=== PATIENT | female | born 1940 | race Caucasian/White ===

== ENCOUNTER 2025-10-13 22:41 | Inpatient (IN) ==
--- NOTE | 2025-10-13 22:59 | Emergency Department Note ---
Impression & Plan Acute hypoxic respiratory failure, Acute respiratory distress, Atrial fibrillation with RVR, Pneumonia ED Provider Note NAME: MIGDALIA AMBROCIO AGE: 85 SEX: F : 1940 ARRIVES VIA: Ambulance INFORMANT: Patient ED PROVIDER(S): Peter Apodaca DO CHIEF COMPLAINT: Shortness of breath, cough and congestion HPI: Patient is an 85-year-old female who presents ER for shortness of breath associate with cough and congestion. She has a history of COPD. She notes symptoms have been present for the past 2 to 3 days and have been getting worse. She has been having off-and-on diarrhea per report from EMS. She was prescribed antibiotics and steroids but never started them. She denies any belly pain. No dysuria, urgency or frequency. No other exacerbating or remitting factors. She is found to be 70% on room air and placed on nonrebreather and transported in. ADDITIONAL HISTORY OBTAINED: Per HPI Chronic Medical/Social Conditions Affecting Care: Per HPI PAST MEDICAL HISTORY:See Below PAST SURGICAL HISTORY:See Below FAMILY HISTORY:See Below SOCIAL HISTORY:See Below HOME MEDICATIONS:See Below ALLERGIES:See Below VITALS:See Below PHYSICAL EXAMINATION: GENERAL: Sitting up in bed, alert, ill-appearing, disheveled, on a nonrebreather EYE EXAM: normal conjunctiva. PERRL and EOM's grossly intact. OROPHARYNX: no exudate, no erythema, lips, buccal mucosa, and tongue normal and mucous membranes are moist NECK: supple, no nuchal rigidity, no adenopathy, non-tender LUNGS: Rhonchi bilaterally. Normal chest wall mechanics HEART: no murmurs, S1 normal and S2 normal ABDOMEN: abdomen soft, non-tender, normo-active bowel sounds, no masses, no rebound or guarding. UPPER EXTREMITIES: upper extremities are grossly normal. LOWER EXTREMITIES: No pitting edema. NEURO EXAM: Normal sensorium, cranial nerves II-XII grossly intact, normal speech, no gross weakness of arms, no gross weakness of legs. MEDICAL DECISION MAKING: Patient is an 85-year-old female who presents ER for above-stated complaint. IV was established and blood work was obtained. Labs show mild leukocytosis of 12,000. No significant anemia. INR unremarkable. VBG with a pH of 7.32. BMP with a hyponatremia 133. Lactate 2.9. Mag was unremarkable. Troponin mildly elevated in the 50s. Pro-Se at 1.5. UA was contaminated with multiple epithelial cells. Patient was flu positive. She was covered with IV Rocephin and IV azithromycin. She was given 2 L of IV fluids due to the persistent diarrhea and initial hypotension. Case was discussed with hospitalist for further evaluation management treatment. She was titrated off of the nonrebreather on the 2 L nasal cannula. After 2 L of IV fluids he was given 5 mg IV Lopressor to slow the rate. Did not want to completely slow her down as I do favor portion this is infectious and dehydration and will continue to repeat with IV fluids. Consults/Care Managements Discussions: Per [facility] Triage Nursing notes reviewed. Limited review of prior medical records performed Vital Signs: reviewed and remarkable for hypoxic, tachycardic Differential diagnosis: Differential diagnoses includes but is not limited to pneumonia, bronchitis, COPD/Asthma exacerbation, pneumothorax, pulmonary embolism, congestive heart failure, acute coronary syndrome ER treatment provided: See below Diagnostics interpreted by me include EKG and cardiac monitoring as listed below: -Cardiac Monitoring: An order was placed for continuous cardiac monitoring. The monitor shows a rate of 120 with A-fib rhythm. -ECG: A-fib RVR rate of [address] depressions in the inferior leads and lateral leads QTc 438 -Laboratory studies:Interpreted by me as stated above in MDM and shown below. Imaging studies: Xrays: As interpreted by me: Portable AP upright 1 view of the chest shows infiltrates CTs show: none Procedures:none Critical Care: I have personally spent 55 minutes of critical care time in the direct management of this patient. This includes bedside care, interpretation of diagnostic studies, and testing, discussion with consultants, patient, and family members, and other required patient management activities. This 55 minutes is in excess of all separately billable procedures. Past Med/Surg History Problem List (Updated 10/14/25 @ 00:43 by Trey Gates MD) Acute respiratory distress Social History Feels Safe at Home: Yes Allergies Allergies Allergy/AdvReac Type Severity Reaction Status Date / Time aspirin Allergy Severe ANGIOEDEMA Verified 10/13/25 23:48 NSAIDS (Non-Steroidal Allergy Severe ANGIOEDEMA Verified 10/13/25 23:48 Anti-Inflamma clotrimazole Allergy Intermediate Itching Verified 10/13/25 23:48 erythromycin base Allergy Intermediate Hives Verified 10/13/25 23:48 Home Meds Home Medications Medication Instructions Recorded Confirmed albuterol sulfate 90 mcg/actuation 2 puff inhalation QID PRN 10/13/25 10/13/25 aerosol inhaler Shortness Of Breath Or Wheezing amlodipine 10 mg tablet 10 mg PO HS 10/13/25 10/13/25 amoxicillin 875 mg-potassium 1 tab PO BID 10/13/25 10/13/25 clavulanate 125 mg tablet atorvastatin 10 mg tablet 10 mg PO 3XWK 10/13/25 10/13/25 budesonide 160 mcg-glycopyr 9 2 inh inhalation BID 10/13/25 10/13/25 mcg-formot 4.8 mcg/actuation HFA inhaler (Breztri Aerosphere) clotrimazole-betamethasone 1 1 applic topical BID 10/13/25 10/13/25 %-0.05 % topical cream conjugated estrogens 0.625 mg/gram 1,000 mg vaginal HS 10/13/25 10/13/25 vaginal cream (Premarin) montelukast 10 mg tablet 10 mg PO HS 10/13/25 10/13/25 nebivolol 5 mg tablet 5 mg PO QAM 10/13/25 10/13/25 omeprazole 20 mg capsule,delayed 20 mg PO DAILYBB 10/13/25 10/13/25 release prednisone 20 mg tablet 20 mg PO DIRECTED 10/13/25 10/13/25 Results & Data (ED) Vital Signs Vital Signs - 24 hr 10/13/25 22:43 10/13/25 22:46 10/13/25 22:48 Temperature 36.4 C L Temperature Source Axillary Pulse Rate 155 H 146 H Pulse Rate [Apical] Respiratory Rate 38 H Respiratory Pattern Blood Pressure 110/70 Blood Pressure [Right Arm] Blood Pressure Mean 83 Blood Pressure Mean [Right Arm] Pulse Oximetry 74 L 86 L Oxygen Delivery Method Room Air Room Air Nasal Cannula Oxygen Flow Rate 0 Sepsis Recent Fever Within 48 Hours Yes Sepsis New/Unexplained Change in Mental Status No Sepsis Action Taken by Nursing Physician Notified Oxygen Flow Rate - Titration 4 Pulse Oximetry Post Tiitration 95 10/13/25 22:48 10/13/25 22:48 10/13/25 22:48 Temperature Temperature Source Pulse Rate Pulse Rate [Apical] Respiratory Rate Respiratory Pattern Tachypnea Blood Pressure Blood Pressure [Right Arm] Blood Pressure Mean Blood Pressure Mean [Right Arm] Pulse Oximetry Oxygen Delivery Method Nasal Cannula Nasal Cannula Oxygen Flow Rate Sepsis Recent Fever Within 48 Hours Sepsis New/Unexplained Change in Mental Status Sepsis Action Taken by Nursing Oxygen Flow Rate - Titration Pulse Oximetry Post Tiitration 10/13/25 23:31 10/13/25 23:48 10/14/25 00:00 Temperature Temperature Source Pulse Rate 136 H Pulse Rate [Apical] 131 H 106 H Respiratory Rate 22 26 H Respiratory Pattern Blood Pressure 134/107 H Blood Pressure [Right Arm] 122/74 138/101 H Blood Pressure Mean Blood Pressure Mean [Right Arm] 90 113 Pulse Oximetry 90 93 Oxygen Delivery Method Nasal Cannula Nasal Cannula Oxygen Flow Rate 4 4 Sepsis Recent Fever Within 48 Hours Sepsis New/Unexplained Change in Mental Status Sepsis Action Taken by Nursing Oxygen Flow Rate - Titration Pulse Oximetry Post Tiitration 10/14/25 00:00 10/14/25 00:22 Temperature Temperature Source Pulse Rate 106 H Pulse Rate [Apical] 124 H Respiratory Rate 24 Respiratory Pattern Blood Pressure Blood Pressure [Right Arm] 128/97 Blood Pressure Mean Blood Pressure Mean [Right Arm] 107 Pulse Oximetry 94 Oxygen Delivery Method Nasal Cannula Oxygen Flow Rate 4 Sepsis Recent Fever Within 48 Hours Sepsis New/Unexplained Change in Mental Status Sepsis Action Taken by Nursing Oxygen Flow Rate - Titration Pulse Oximetry Post Tiitration Laboratory Data 10/13/25 22:56 10/13/25 22:56 Lab Results 10/13/25 10/13/25 10/13/25 Range/Units 22:56 22:58 23:03 WBC 12.15 H (4.8-10.8) K/ul RBC 4.66 (4.20-5.40) M/uL Hgb 13.6 (12.0-16.0) g/dL POC Hgb 15.6 (12.0-16.0) g/dl Hct 40.1 (37.0-47.0) % POC Hct 46 (37-47) % MCV 86.1 (80.0-100.0) fL MCH 29.2 (25.0-34.0) pg MCHC 33.9 (32.0-36.0) g/dL RDW Std Deviation 43.1 (36.4-46.3) fL RDW Coeff of Abraham 13.9 (11.5-14.5) % Plt Count 432 H (130-400) K/uL MPV 10.2 (9.4-12.4) fL Absolute Nucleated RBC 0.02 (0.00-0.12) K/uL Nucleated RBC % (auto) 0.2 % Neutrophils % (Manual) 76 % Lymphocytes % (Manual) 19 % Monocytes % (Manual) 3 % Metamyelocytes % (Man) 1 % Plasma Cell % (Manual) 1 % Neutrophils # (Manual) 9.23 H (1.40-6.50) K/uL Total Absolute Neuts 9.23 H (1.4-6.5) K/uL Lymphocytes # (Manual) 2.31 (1.2-3.4) K/uL Total Abs Lymphocytes 2.43 (1.2-3.4) K/uL Monocytes # (Manual) 0.36 (0.11-0.59) K/uL Metamyelocytes # (Man) 0.12 H (0-0) K/uL Plasma Cell # (Manual) 0.12 H (0-0) K/uL Polychromasia 1+ Echinocytes 2+ PT 11.4 (9.0-12.0) Seconds INR 1.1 (0.9-1.1) APTT 24 (21-31) Seconds PTT Ratio 0.9 VBG pH 7.32 L (7.36-7.41) VBG pCO2 42 (38-50) mmHg VBG pO2 24 mmHg VBG HCO3 22 mmol/L VBG O2 Saturation < 60.0 % VBG Base Excess -4.3 mEq/L POC Sodium 134 L (135-144) mmol/L Sodium 133 L (136-145) mmol/L POC Potassium 3.4 (3.3-5.0) mmol/L Potassium 3.0 L (3.5-5.1) mmol/L POC Chloride 98 L (101-112) mmol/L Chloride 94 L (98-107) mmol/L Carbon Dioxide 20 L (21-32) mmol/L POC Total CO2 21 L (24-31) mmol/L Anion Gap 19 H (3-11) POC Anion Gap 20.0 (16-25) mmol/L POC BUN 53 H (7-18) mg/dl BUN 53 H (6-23) mg/dl Creatinine 1.26 H (0.6-1.2) mg/dl POC Creatinine 1.2 (0.6-1.3) mg/dl Est Cr Clr Drug Dosing 30.1 ml/min eGFR 42.10 BUN/Creatinine Ratio 42.1 H (10-20) Glucose 147 H (70-99(Fasting)) mg/dl POC Glucose (other) 143 H (70-99) mg/dl Lactate 2.9 H* (0.4-2.0) mmol/L Calcium 9.4 (8.6-10.3) mg/dl POC Ioniz Calcium Birgit 1.03 L (1.12-1.32) mmol/l Magnesium 2.0 (1.7-2.4) mg/dl Total Bilirubin 0.7 (0.2-1.0) mg/dl Direct Bilirubin 0.3 H (0-0.2) mg/dl AST 59 H (13-39) U/L ALT 26 (7-52) U/L Alkaline Phosphatase 124 H (34-104) U/L Troponin I High Sens 59.4 H* (0-14) pg/ml Total Protein 8.3 (6.0-8.3) gm/dl Albumin 3.8 (3.4-5.0) gm/dl Procalcitonin 1.52 H (0-0.5) ng/ml Urine Color Urine Appearance (Clear) Urine pH (4.5-7.5) Ur Specific [place] (1.000-1.030) Urine Protein (Negative) Urine Glucose (UA) (Negative) Urine Ketones (Negative) Urine Blood (Negative) Urine Nitrite (Negative) Urine Bilirubin (Negative) Urine Urobilinogen (Negative) Ur Leukocyte Esterase (Negative) Urine WBC (Auto) (0-5) /hpf Urine RBC (Auto) (0-2) /hpf U Hyaline Cast (Auto) (0-2) /lpf U Epithel Cells (Auto) (0-2) /hpf Urine Bacteria (Auto) (None Seen) Urine Mucus (None Prsent) Urine Comment SARS-CoV-2 (PCR) NEGATIVE (Negative) Influenza Type A (PCR) Positive A (Neg) Influenza Type B (PCR) Negative (Neg) RSV (RT-PCR) Negative (Neg) 10/13/25 Range/Units 23:44 WBC (4.8-10.8) K/ul RBC (4.20-5.40) M/uL Hgb (12.0-16.0) g/dL POC Hgb (12.0-16.0) g/dl Hct (37.0-47.0) % POC Hct (37-47) % MCV (80.0-100.0) fL MCH (25.0-34.0) pg MCHC (32.0-36.0) g/dL RDW Std Deviation (36.4-46.3) fL RDW Coeff of Abraham (11.5-14.5) % Plt Count (130-400) K/uL MPV (9.4-12.4) fL Absolute Nucleated RBC (0.00-0.12) K/uL Nucleated RBC % (auto) % Neutrophils % (Manual) % Lymphocytes % (Manual) % Monocytes % (Manual) % Metamyelocytes % (Man) % Plasma Cell % (Manual) % Neutrophils # (Manual) (1.40-6.50) K/uL Total Absolute Neuts (1.4-6.5) K/uL Lymphocytes # (Manual) (1.2-3.4) K/uL Total Abs Lymphocytes (1.2-3.4) K/uL Monocytes # (Manual) (0.11-0.59) K/uL Metamyelocytes # (Man) (0-0) K/uL Plasma Cell # (Manual) (0-0) K/uL Polychromasia Echinocytes PT (9.0-12.0) Seconds INR (0.9-1.1) APTT (21-31) Seconds PTT Ratio VBG pH (7.36-7.41) VBG pCO2 (38-50) mmHg VBG pO2 mmHg VBG HCO3 mmol/L VBG O2 Saturation % VBG Base Excess mEq/L POC Sodium (135-144) mmol/L Sodium (136-145) mmol/L POC Potassium (3.3-5.0) mmol/L Potassium (3.5-5.1) mmol/L POC Chloride (101-112) mmol/L Chloride (98-107) mmol/L Carbon Dioxide (21-32) mmol/L POC Total CO2 (24-31) mmol/L Anion Gap (3-11) POC Anion Gap (16-25) mmol/L POC BUN (7-18) mg/dl BUN (6-23) mg/dl Creatinine (0.6-1.2) mg/dl POC Creatinine (0.6-1.3) mg/dl Est Cr Clr Drug Dosing ml/min eGFR BUN/Creatinine Ratio (10-20) Glucose (70-99(Fasting)) mg/dl POC Glucose (other) (70-99) mg/dl Lactate (0.4-2.0) mmol/L Calcium (8.6-10.3) mg/dl POC Ioniz Calcium Birgit (1.12-1.32) mmol/l Magnesium (1.7-2.4) mg/dl Total Bilirubin (0.2-1.0) mg/dl Direct Bilirubin (0-0.2) mg/dl AST (13-39) U/L ALT (7-52) U/L Alkaline Phosphatase (34-104) U/L Troponin I High Sens (0-14) pg/ml Total Protein (6.0-8.3) gm/dl Albumin (3.4-5.0) gm/dl Procalcitonin (0-0.5) ng/ml Urine Color Dark Yellow Urine Appearance Turbid A (Clear) Urine pH 5.5 (4.5-7.5) Ur Specific [place] 1.024 (1.000-1.030) Urine Protein 2+ H (Negative) Urine Glucose (UA) Negative (Negative) Urine Ketones 1+ H (Negative) Urine Blood 2+ H (Negative) Urine Nitrite Negative (Negative) Urine Bilirubin 2+ H (Negative) Urine Urobilinogen Negative (Negative) Ur Leukocyte Esterase Trace H (Negative) Urine WBC (Auto) 6-10 H (0-5) /hpf Urine RBC (Auto) 11-20 H (0-2) /hpf U Hyaline Cast (Auto) >20 H (0-2) /lpf U Epithel Cells (Auto) >20 H (0-2) /hpf Urine Bacteria (Auto) 3+ H (None Seen) Urine Mucus Present A (None Prsent) Urine Comment SARS-CoV-2 (PCR) (Negative) Influenza Type A (PCR) (Neg) Influenza Type B (PCR) (Neg) RSV (RT-PCR) (Neg) Administered Medications Sodium Chloride (Nss) 1,000 mls @ 999 mls/hr IV .[id number] SHELLEY Stop: 10/14/25 01:00 Last Admin: 10/14/25 00:29 Dose: 999 mls/hr Documented By: Infusion: 10/14/25 00:01 Dose: Infused Documented By: Admin: 10/13/25 23:00 Dose: 999 mls/hr Documented By: AN Azithromycin (Zithromax) 500 mg in 255 mls @ 127.5 mls/hr IV NOW ONE Stop: 10/14/25 01:20 Last Admin: 10/13/25 23:37 Dose: 127.5 mls/hr Documented By: AN Discontinued Medications Albuterol (Albut/Ipratrop 3mg/0.5mg Neb 3 Ml Vial) 3 ml NEB NOW STA; Protocol Stop: 10/13/25 22:50 Last Admin: 10/13/25 23:00 Dose: 3 ml Documented By: AN Ceftriaxone Sodium (Rocephin) 2,000 mg in 50 mls @ 100 mls/hr IV NOW STA Stop: 10/13/25 23:19 Last Infusion: 10/13/25 23:36 Dose: Infused Documented By: Admin: 10/13/25 23:00 Dose: 100 mls/hr Documented By: AN Methylprednisolone (Methylprednisolone 125 Mg/2 Ml Vial) 60 mg IV NOW STA Stop: 10/13/25 22:50 Last Admin: 10/13/25 23:00 Dose: 60 mg Documented By: AN Metoprolol Tartrate (Metoprolol Tartrate 1 Mg/Ml Vial) 5 mg IV NOW STA Stop: 10/13/25 23:36 Last Admin: 10/13/25 23:48 Dose: 5 mg Documented By: AN Miscellaneous (Rapid Sequence Induction Bag) Confirm Administered Dose 1 each N/A .STK-MED ONE Stop: 10/13/25 22:33 Last Admin: 10/13/25 23:11 Dose: Not Given Documented By: AN Imaging Data Radiologist's Impression: Chest X-Ray 10/13/25 22:48 Exam(s): XR CXR 1 VIEW EXAM: XR Chest, 1 View CLINICAL HISTORY: Reason for exam: Sepsis. TECHNIQUE: Frontal view of the chest. COMPARISON: No relevant prior studies available. FINDINGS: Lungs: There are bilateral patchy opacities.. Pleural space: No pleural effusion is seen. No pneumothorax. Heart: The heart is normal in size.. Mediastinum: Unremarkable. . Bones/joints: Grossly unremarkable.. IMPRESSION: Patchy bilateral opacities may represent infiltrates. Electronically signed by: Cricket Bobo MD 10/13/25 23:09 PM Discharge Plan Visit Data Chief Complaint: Respiratory Distress Stated Complaint: RESPIRATORY DISTRESS, HYPOXIA ED Provider: Peter Apodaca Discharge Problem: Acute hypoxic respiratory failure, Acute respiratory distress, Atrial fibrillation with RVR, Pneumonia Condition: Critical Discharge Problem: Pneumonia Qualifiers: Pneumonia type: due to unspecified organism Laterality: unspecified laterality Lung location: unspecified part of lung Qualified Code(s): J18.9 - Pneumonia, unspecified organism
[2025-10-13] MEDS: ALBUT/IPRATROP 3MG/0.5MG NEB 3 ML VIAL NEB STA (23:00)
[2025-10-13] MEDS: cefTRIAXone SODIUM 2,000 MG/50 ML BAG IV STA (23:00)
[2025-10-13] MEDS: SODIUM CHLORIDE 0.9% 1,000 ML IV SCH (23:00)
--- NOTE | 2025-10-13 23:10 | XRay Report ---
Exam(s): XR CXR 1 VIEW EXAM: XR Chest, 1 View CLINICAL HISTORY: Reason for exam: Sepsis. TECHNIQUE: Frontal view of the chest. COMPARISON: No relevant prior studies available. FINDINGS: Lungs: There are bilateral patchy opacities.. Pleural space: No pleural effusion is seen. No pneumothorax. Heart: The heart is normal in size.. Mediastinum: Unremarkable. . Bones/joints: Grossly unremarkable.. IMPRESSION: Patchy bilateral opacities may represent infiltrates. Electronically signed by: Cricket Bobo MD 10/13/25 23:09 PM
[2025-10-13] MEDS: RAPID SEQUENCE INDUCTION BAG ONE (23:11)
[2025-10-13 23:12] LABS: Base Excess VBG -4.3 mEq/L; HCO3 VBG 22 mmol/L; Oxygen Saturation VBG < 60.0 %; PCO2 VBG 42 mmHg (38-50); PO2 VBG 24 mmHg; pH VBG 7.32 (7.36-7.41)
[2025-10-13 23:16] LABS: Hematocrit (blood only) 40.1 % (37.0-47.0); Hemoglobin 13.6 g/dL (12.0-16.0); Mean Corpuscular Hemoglobin 29.2 pg (25.0-34.0); Mean Corpuscular Volume 86.1 fL (80.0-100.0); Platelet Count 432 K/uL (130-400); RDW Standard Deviation 43.1 fL (36.4-46.3); Red Blood Count 4.66 M/uL (4.20-5.40); White Blood Count 12.15 K/ul (4.8-10.8)
[2025-10-13 23:33] LABS: Alanine Aminotransferase 26.0 U/L (7-52); Albumin Level 3.8 gm/dl (3.4-5.0); Alkaline Phosphatase 124.0 U/L (34-104); Anion Gap 19.0 (3-11); Bilirubin,Total 0.7 mg/dl (0.2-1.0); Blood Urea Nitrogen 53.0 mg/dl (6-23); Calcium 9.4 mg/dl (8.6-10.3); Carbon Dioxide 20.0 mmol/L (21-32); Chloride 94.0 mmol/L (98-107); Creatinine Clr Calc Pharmacy 30.1 ml/min; Glucose 147.0 mg/dl (70-99(Fasting)); Magnesium 2.0 mg/dl (1.7-2.4); Potassium 3.0 mmol/L (3.5-5.1); Sodium 133.0 mmol/L (136-145); Total Protein 8.3 gm/dl (6.0-8.3)
[2025-10-13] MEDS: AZITHROMYCIN 500 MG/255 ML BAG IV ONE (23:37)
[2025-10-13 23:43] LABS: INR 1.1 (0.9-1.1); Partial Thromboplastin Time 24 Seconds (21-31); Prothrombin Time 11.4 Seconds (9.0-12.0)
[2025-10-13] MEDS: METOPROLOL TARTRATE 1 MG/ML VIAL IV STA (23:48)
[2025-10-14 00:05] LABS: ALC (manual) 2.43 K/uL (1.2-3.4); ANC (manual) 9.23 K/uL (1.4-6.5); Polychromasia 1+
[2025-10-14 00:06] LABS: Influenza A virus by PCR Positive (Neg); Influenza B virus by PCR Negative (Neg); SARS CoV2 RNA(COVID-19) Ceph NEGATIVE (Negative)
[2025-10-14 00:09] LABS: Appearance Urine Turbid (Clear); Bacteria Urine Automated 3+ (None Seen); Cast Urine Automated >20 /lpf (0-2); Epithelial Cell Urine Auto >20 /hpf (0-2); Glucose Urine UA Negative (Negative)
--- NOTE | 2025-10-14 00:49 | History & Physical Report ---
Date of Service October 14, 2025 Assessment & Plan (1) Acute respiratory distress: Plan: 85-year-old female with past medical history significant for hypertension, COPD, hyperlipidemia, GERD, history of angioneurotic edema, who lives at home alone was brought in because of acute respite distress. Daughter is in the room. Patient states since she has been sick. First couple of days she had low-grade fevers. Having cough. Progressively getting short of breath. Last 3 days shortness of breath got worse. Her PCP prescribed prednisone and antibiotics last Wednesday but not taken yet. Having lot of nausea. Poor appetite. With coughing she has some chest discomfort. Currently no chest pain. Has some headaches. No runny nose or sore throat. No earache. No abdominal pain. Was also having diarrhea. Micturating okay. In the ER patient was having rapid A-fib. Per the EMS oxygen saturation was found to be 70% and was placed on nonrebreather and transferred to ER. Currently is saturating okay on 4 L. Acute respiratory distress Bilateral pneumonia Influenza A positive Empiric Rocephin and azithromycin given in the ER which will be continued Will also give Tamiflu Droplet precautions Lactic is 2.9. Getting fluids. repeat lactic acid 1.6 elevated d dimer. Will follow ct chest pe study Will Monitor the response Possible COPD exacerbation From above Nebs [id number] and as needed Continue home inhalers IV Solu-Medrol 40 mg tid Will monitor Rapid A-fib New onset Received IV Lopressor in the ER Will continue with IV Lopressor as needed and IV heparin Will follow serial enzymes and echo Elevated troponin Initial troponin 59 Mostly demand ischemia Will follow serial enzymes and echo Cardiology consulted Acute UTI On Rocephin Will follow cultures Diarrhea Will follow stool studies JANIA Present with creatinine 1.2 Baseline creatinine 0.9 in 2023 Avoid nephrotoxic agents Will follow labs Hypokalemia Will replace Hypertension On Nebivolol and amlodipine Will monitor GERD Omeprazole Hyperlipidemia On statin DVT prophylaxis IV heparin Disposition Telemetry Full code History of Present Illness Chief Complaint: Respiratory distress Primary Care Provider: Edith Forte MD 85-year-old female with past medical history significant for hypertension, COPD, hyperlipidemia, GERD, history of angioneurotic edema, who lives at home alone was brought in because of acute respite distress. Daughter is in the room. Patient states since she has been sick. First couple of days she had low-grade fevers. Having cough. Progressively getting short of breath. Last 3 days shortness of breath got worse. Her PCP prescribed prednisone and antibiotics last Wednesday but not taken yet. Having lot of nausea. Poor appetite. With coughing she has some chest discomfort. Currently no chest pain. Has some headaches. No runny nose or sore throat. No earache. No abdominal pain. Was also having diarrhea. Micturating okay. In the ER patient was having rapid A-fib. Per the EMS oxygen saturation was found to be 70% and was placed on nonrebreather and transferred to ER. Currently is saturating okay on 4 L. Past medical history. As mentioned above. Past surgical history. Hysterectomy. Cholecystectomy. Appendectomy. Tonsillectomy. Social history. Says quit smoking about 30 years ago. Prior to that smoked 1 pack a day for 35 years. Alcohol rarely. No drug use. Family history. Sister had breast cancer. Paternal aunt had breast cancer. Mother had diabetes. Father had heart disorder. Allergies Allergy/AdvReac Type Severity Reaction Status Date / Time aspirin Allergy Severe ANGIOEDEMA Verified 10/13/25 23:48 NSAIDS (Non-Steroidal Allergy Severe ANGIOEDEMA Verified 10/13/25 23:48 Anti-Inflamma clotrimazole Allergy Intermediate Itching Verified 10/13/25 23:48 erythromycin base Allergy Intermediate Hives Verified 10/13/25 23:48 Home Medications Medication Instructions Recorded Confirmed Type albuterol sulfate 90 mcg/actuation 2 puff inhalation QID PRN 10/13/25 10/13/25 History aerosol inhaler Shortness Of Breath Or Wheezing amlodipine 10 mg tablet 10 mg PO HS 10/13/25 10/13/25 History amoxicillin 875 mg-potassium 1 tab PO BID 10/13/25 10/13/25 History clavulanate 125 mg tablet atorvastatin 10 mg tablet 10 mg PO 3XWK 10/13/25 10/13/25 History budesonide 160 mcg-glycopyr 9 2 inh inhalation BID 10/13/25 10/13/25 History mcg-formot 4.8 mcg/actuation HFA inhaler (Breztri Aerosphere) clotrimazole-betamethasone 1 1 applic topical BID 10/13/25 10/13/25 History %-0.05 % topical cream conjugated estrogens 0.625 mg/gram 1,000 mg vaginal HS 10/13/25 10/13/25 History vaginal cream (Premarin) montelukast 10 mg tablet 10 mg PO HS 10/13/25 10/13/25 History nebivolol 5 mg tablet 5 mg PO QAM 10/13/25 10/13/25 History omeprazole 20 mg capsule,delayed 20 mg PO DAILYBB 10/13/25 10/13/25 History release prednisone 20 mg tablet 20 mg PO DIRECTED 10/13/25 10/13/25 History Past Med/Surg History Problem List (Updated 10/14/25 @ 00:43 by Trey Gates MD) Acute respiratory distress Social History Smoking Status: Former smoker Smoking End Date: 30 years ago; Hx Alcohol Use: No Hx Substance Use: No Preferred Language: Czech Communication Ability: Effective Technical Services Specialist Required: No Beliefs That Will Affect Care: None Current Living Situation: Alone Current Living Situation Comment: lives at home alone Other Information That Helps Us Care for You: No Feels Safe at Home: Yes Safety Concerns: Feels Safe At This Time Assistive Devices: Hearing Aid - Bilateral Review of Systems Review of Systems: All systems reviewed & are unremarkable except as noted in HPI & below Physical Exam Physical Exam: General- Not in distress Head- atraumatic Eyes- PERRL. ENT- oropharynx dry Neck- supple, no JVD. Lungs- clear to auscultation mild bibasilar crackles and rhonchi Heart- irregular rhythm; tachycardia, no murmur, no gallop. Abdomen- normal bowel sounds, soft, nontender, no distension. Extremities- no pretibial edema, no erythema seen Neuro- alert, oriented PERRL, no facial palsy; no dysarthria; moves extremities Results & Data Results & Data Vital Signs (Past 12 Hours) Vital Signs Temp Pulse Pulse Resp BP BP Pulse Ox 10/14/25 00:22 124 H 24 128/97 94 10/14/25 00:00 106 H 10/14/25 00:00 106 H 26 H 138/101 H 93 10/13/25 23:48 136 H 134/107 H 10/13/25 23:31 131 H 22 122/74 90 10/13/25 22:48 10/13/25 22:48 10/13/25 22:48 86 L 12/06/25 22:46 146 H 10/13/25 22:43 36.4 C L 155 H 38 H 110/70 74 L O2 Del Method O2 Flow Rate 10/14/25 00:22 Nasal Cannula 4 10/14/25 00:00 10/14/25 00:00 Nasal Cannula 4 10/13/25 23:48 10/13/25 23:31 Nasal Cannula 4 10/13/25 22:48 Nasal Cannula 10/13/25 22:48 Nasal Cannula 10/13/25 22:48 Room Air, Nasal Cannula 0 10/13/25 22:46 10/13/25 22:43 Room Air Diagnostic Findings Laboratory Results WBC 12.15 K/ul (4.8-10.8) H 10/13/25 22:56 RBC 4.66 M/uL (4.20-5.40) 10/13/25 22:56 Hgb 13.6 g/dL (12.0-16.0) 10/13/25 22:56 POC Hgb 15.6 g/dl (12.0-16.0) 10/13/25 23:03 Hct 40.1 % (37.0-47.0) 10/13/25 22:56 POC Hct 46 % (37-47) 10/13/25 23:03 MCV 86.1 fL (80.0-100.0) 10/13/25 22:56 MCH 29.2 pg (25.0-34.0) 10/13/25 22:56 MCHC 33.9 g/dL (32.0-36.0) 10/13/25 22:56 RDW Std Deviation 43.1 fL (36.4-46.3) 10/13/25 22:56 RDW Coeff of Abraham 13.9 % (11.5-14.5) 10/13/25 22:56 Plt Count 432 K/uL (130-400) H 10/13/25 22:56 MPV 10.2 fL (9.4-12.4) 10/13/25 22:56 Absolute Nucleated RBC 0.02 K/uL (0.00-0.12) 10/13/25 22:56 Nucleated RBC % (auto) 0.2 % 10/13/25 22:56 Neutrophils % (Manual) 76 % 10/13/25 22:56 Lymphocytes % (Manual) 19 % 10/13/25 22:56 Monocytes % (Manual) 3 % 10/13/25 22:56 Metamyelocytes % (Man) 1 % 10/13/25 22:56 Plasma Cell % (Manual) 1 % 10/13/25 22:56 Neutrophils # (Manual) 9.23 K/uL (1.40-6.50) H 10/13/25 22:56 Total Absolute Neuts 9.23 K/uL (1.4-6.5) H 10/13/25 22:56 Lymphocytes # (Manual) 2.31 K/uL (1.2-3.4) 10/13/25 22:56 Total Abs Lymphocytes 2.43 K/uL (1.2-3.4) 10/13/25 22:56 Monocytes # (Manual) 0.36 K/uL (0.11-0.59) 10/13/25 22:56 Metamyelocytes # (Man) 0.12 K/uL (0-0) H 10/13/25 22:56 Plasma Cell # (Manual) 0.12 K/uL (0-0) H 10/13/25 22:56 Polychromasia 1+ 10/13/25 22:56 Echinocytes 2+ 10/13/25 22:56 PT 11.4 Seconds (9.0-12.0) 10/13/25 22:56 INR 1.1 (0.9-1.1) 10/13/25 22:56 APTT 24 Seconds (21-31) 10/13/25 22:56 PTT Ratio 0.9 10/13/25 22:56 VBG pH 7.32 (7.36-7.41) L 10/13/25 22:56 VBG pCO2 42 mmHg (38-50) 10/13/25 22:56 VBG pO2 24 mmHg 10/13/25 22:56 VBG HCO3 22 mmol/L 10/13/25 22:56 VBG O2 Saturation < 60.0 % 10/13/25 22:56 VBG Base Excess -4.3 mEq/L 10/13/25 22:56 POC Sodium 134 mmol/L (135-144) L 10/13/25 23:03 Sodium 133 mmol/L (136-145) L 12/06/25 22:56 POC Potassium 3.4 mmol/L (3.3-5.0) 10/13/25 23:03 Potassium 3.0 mmol/L (3.5-5.1) L 10/13/25 22:56 POC Chloride 98 mmol/L (101-112) L 10/13/25 23:03 Chloride 94 mmol/L (98-107) L 10/13/25 22:56 Carbon Dioxide 20 mmol/L (21-32) L 10/13/25 22:56 POC Total CO2 21 mmol/L (24-31) L 10/13/25 23:03 Anion Gap 19 (3-11) H 10/13/25 22:56 POC Anion Gap 20.0 mmol/L (16-25) 10/13/25 23:03 POC BUN 53 mg/dl (7-18) H 10/13/25 23:03 BUN 53 mg/dl (6-23) H 10/13/25 22:56 Creatinine 1.26 mg/dl (0.6-1.2) H 10/13/25 22:56 POC Creatinine 1.2 mg/dl (0.6-1.3) 10/13/25 23:03 Est Cr Clr Drug Dosing 30.1 ml/min 10/13/25 22:56 eGFR 42.10 10/13/25 22:56 BUN/Creatinine Ratio 42.1 (10-20) H 10/13/25 22:56 Glucose 147 mg/dl (70-99(Fasting)) H 10/13/25 22:56 POC Glucose (other) 143 mg/dl (70-99) H 10/13/25 23:03 Lactate 2.9 mmol/L (0.4-2.0) H* 10/13/25 22:56 Calcium 9.4 mg/dl (8.6-10.3) 10/13/25 22:56 POC Ioniz Calcium Birgit 1.03 mmol/l (1.12-1.32) L 10/13/25 23:03 Magnesium 2.0 mg/dl (1.7-2.4) 10/13/25 22:56 Total Bilirubin 0.7 mg/dl (0.2-1.0) 10/13/25 22:56 Direct Bilirubin 0.3 mg/dl (0-0.2) H 10/13/25 22:56 AST 59 U/L (13-39) H 10/13/25 22:56 ALT 26 U/L (7-52) 10/13/25 22:56 Alkaline Phosphatase 124 U/L (34-104) H 10/13/25 22:56 Troponin I High Sens 59.4 pg/ml (0-14) H* 10/13/25 22:56 Total Protein 8.3 gm/dl (6.0-8.3) 10/13/25 22:56 Albumin 3.8 gm/dl (3.4-5.0) 10/13/25 22:56 Procalcitonin 1.52 ng/ml (0-0.5) H 10/13/25 22:56 Urine Color Dark Yellow 10/13/25 23:44 Urine Appearance Turbid (Clear) A 10/13/25 23:44 Urine pH 5.5 (4.5-7.5) 10/13/25 23:44 Ur Specific [place] 1.024 (1.000-1.030) 10/13/25 23:44 Urine Protein 2+ (Negative) H 10/13/25 23:44 Urine Glucose (UA) Negative (Negative) 10/13/25 23:44 Urine Ketones 1+ (Negative) H 10/13/25 23:44 Urine Blood 2+ (Negative) H 10/13/25 23:44 Urine Nitrite Negative (Negative) 10/13/25 23:44 Urine Bilirubin 2+ (Negative) H 10/13/25 23:44 Urine Urobilinogen Negative (Negative) 10/13/25 23:44 Ur Leukocyte Esterase Trace (Negative) H 10/13/25 23:44 Urine WBC (Auto) 6-10 /hpf (0-5) H 10/13/25 23:44 Urine RBC (Auto) 11-20 /hpf (0-2) H 10/13/25 23:44 U Hyaline Cast (Auto) >20 /lpf (0-2) H 10/13/25 23:44 U Epithel Cells (Auto) >20 /hpf (0-2) H 10/13/25 23:44 Urine Bacteria (Auto) 3+ (None Seen) H 10/13/25 23:44 Urine Mucus Present (None Prsent) A 10/13/25 23:44 Urine Comment 10/13/25 23:44 SARS-CoV-2 (PCR) NEGATIVE (Negative) 10/13/25 22:58 Influenza Type A (PCR) Positive (Neg) A 10/13/25 22:58 Influenza Type B (PCR) Negative (Neg) 10/13/25 22:58 RSV (RT-PCR) Negative (Neg) 10/13/25 22:58 Impressions Chest X-Ray 10/13/25 22:48 Exam(s): XR CXR 1 VIEW EXAM: XR Chest, 1 View CLINICAL HISTORY: Reason for exam: Sepsis. TECHNIQUE: Frontal view of the chest. COMPARISON: No relevant prior studies available. FINDINGS: Lungs: There are bilateral patchy opacities.. Pleural space: No pleural effusion is seen. No pneumothorax. Heart: The heart is normal in size.. Mediastinum: Unremarkable. . Bones/joints: Grossly unremarkable.. IMPRESSION: Patchy bilateral opacities may represent infiltrates. Electronically signed by: Cricket Bobo MD 10/13/25 23:09 PM ECG Additional Comments: ECG. A-fib with rapid ventricular response with PVCs or aberrantly conducted complexes at rate of 143. ST and T wave abnormality inferior lateral leads. QTc 438 Code Status & VTE Plan VTE Prophylaxis Plan VTE Prophylaxis will be ordered: Yes
[2025-10-14] MEDS ORDERED: NITROGLYCERIN SL 0.4 MG/TAB TAB SL PRN (00:53)
[2025-10-14] MEDS ORDERED: ALBUTEROL HFA 8 GM INHALER INH PRN (00:53)
[2025-10-14] MEDS ORDERED: LEVALBUTEROL 1.25 MG/3 ML NEB NEB PRN (00:53)
[2025-10-14] MEDS ORDERED: POLYETHYLENE (MIRALAX) 17 GM PACK PO PRN (00:53)
[2025-10-14] MEDS: Heparin IV Adult Wt-Based Standard *NO* INITIAL Bolus Protocol IV STA (02:07)
[2025-10-14] MEDS: POTASSIUM CHLORIDE / WTR 10 MEQ/100 ML PLCT IV SCH (02:14)
[2025-10-14] MEDS: SODIUM CHLORIDE 0.9% 1,000 ML IV SCH (02:14)
[2025-10-14] MEDS: HEPARIN 25000 UNIT/500 ML D5W 25,000 UNITS/500 ML BAG IV SCH (02:15)
[2025-10-14] MEDS: POTASSIUM CHLORIDE 20 MEQ/15 ML UDC PO STA (03:12)
[2025-10-14] MEDS: METOPROLOL TARTRATE 1 MG/ML VIAL IV PRN (03:59)
[2025-10-14] MEDS: LEVALBUTEROL 1.25 MG/3 ML NEB NEB SCH (05:13)
[2025-10-14] MEDS: METOPROLOL TARTRATE 1 MG/ML VIAL IV STA (06:05)
[2025-10-14 06:28] LABS: Hematocrit (blood only) 30.4 % (37.0-47.0); Hemoglobin 10.4 g/dL (12.0-16.0); Mean Corpuscular Hemoglobin 29.5 pg (25.0-34.0); Mean Corpuscular Volume 86.1 fL (80.0-100.0); Platelet Count 345 K/uL (130-400); RDW Standard Deviation 43.4 fL (36.4-46.3); Red Blood Count 3.53 M/uL (4.20-5.40); White Blood Count 10.38 K/ul (4.8-10.8)
[2025-10-14 06:33] LABS: Base Excess VBG -5.6 mEq/L; HCO3 VBG 20 mmol/L; Oxygen Saturation VBG < 60.0 %; PCO2 VBG 39 mmHg (38-50); PO2 VBG 32 mmHg; pH VBG 7.32 (7.36-7.41)
[2025-10-14 06:37] LABS: Immature Granulocytes # (auto) 0.24 K/uL (0.01-0.20); Immature Granulocytes % (auto) 2.3 %; Polychromasia 1+
[2025-10-14 06:38] LABS: Anion Gap 12.0 (3-11); Blood Urea Nitrogen 46.0 mg/dl (6-23); Calcium 7.8 mg/dl (8.6-10.3); Carbon Dioxide 19.0 mmol/L (21-32); Chloride 101.0 mmol/L (98-107); Creatinine Clr Calc Pharmacy 41.9 ml/min; Glucose 178.0 mg/dl (70-99(Fasting)); Magnesium 1.8 mg/dl (1.7-2.4); Potassium 3.9 mmol/L (3.5-5.1); Sodium 132.0 mmol/L (136-145)
[2025-10-14] MEDS: CALCIUM GLUCONATE 1,000 MG/60 ML BAG IV SCH (07:19)
[2025-10-14] MEDS: OSELTAMIVIR PHOSPHATE 75 MG CAP PO STA (07:35)
[2025-10-14] MEDS: BUDESONIDE 0.5 MG/2 ML VIAL (PULMICORT) NEB SCH (08:07)
[2025-10-14] MEDS: FORMOTEROL 20 MCG/2 ML VIAL NEB SCH (08:07)
[2025-10-14] MEDS: UMECLIDINIUM/VILANTEROL 62.5/25MCG 7 PUFFS/INHALER INH SCH (08:20)
[2025-10-14] MEDS: FLUTICASONE FUROATE 200MCG 14 PUFFS/INHALER INH SCH (08:21)
[2025-10-14] MEDS: METOPROLOL TARTRATE 25 MG TAB PO SCH ×2 (08:22→16:52)
--- NOTE | 2025-10-14 08:27 | Cardiology Consultation ---
Date of Consultation October 14, 2025 Assessment & Plan (1) Acute respiratory distress: (2) Multifocal pneumonia: (3) Influenza A: (4) Elevated d-dimer: (5) Atrial fibrillation with RVR: Plan Assessment: 85 year old female with known HTN, HLD and COPD presents with 1.5 weeks of URI symptoms, low grade fevers, and a persistent cough. Prescribed antibiotics and steroids OP by PCP did not start. Found to be in A-fib with RVR upon arrival to the ER, abnormal urine suspicious for UTI, elevated lactate and procalcitonin--blood cultures pending, and CT imaging suggestive of multi-focal pneumonia. Cardiology consuulted for further evaluation and recommendations. Plan: 1. Acute Respiratory distress 2. Multifocal pneumonia 3. Influenza A -patient with several days of + URI symptoms and known COPD. -X-ray suggestive of infectious process--CTA chest negative for PE, but is suggestive of multifocal pneumonia -Patient placed on nebulizer treatments, IV Azithromycin, and IV Methylprednisolone -Started on Tamiflu -Of note, abnormal urine, culture pending, patient is also receiving IV Rocephin -Currently on nasal cannula 4LPM -Continued management of acute infectious process by primary team -Recommend close monitoring of fluid status in the setting of A-fib with patient receiving increased amounts of IV fluids with antibiotics. 4. Elevated D-dimer -CTA chest negative for PE -Venous duplex of lower extremities negative for DVT 5. Atrial fibrillation with RVR -No reported prior history of A-fib or other arrhythmia -Event likely precipitated in the setting of an acute infectious process with + flu, poor oral intake, Likely pneumonia and UTI -Rates 110-120bpm on telemetry--Continue Metoprolol tartrate 25mg PO BID, will trend heart rates and titrate dose as appropriate. Heart rates will likely trend down with response to IV antibiotics and anti-viral agent. -patient does not show evidence of hypervolemia on exam--will need to monitor fluid levels closely -Obtain echocardiogram to assess overall structure and function. -Continue Heparin gtt at this time. [id number] score: 4. Case has been discussed with Dr. Hyman. Further recommendations regarding plan of care as per his assessment. I spent a total of 50 minutes on the date of service in preparation, delivery, documentation of the care provided to the patient excluding any time spent in the performance of separately billed services. [facility] Supervising Physician Co-Signing Physician Notes I have personally performed a history and physical examination on the patient. I have reviewed the advance practitioner's documentation, and I agree with, and take responsibility for the plan of care. 85-year-old female admitted secondary to acute hypoxic respiratory failure with evidence of influenza A and multifocal pneumonia. ECG demonstrating atrial fibrillation with rapid ventricular response likely precipitated by infectious process and poor p.o. intake. Mildly elevated troponin secondary to demand ischemia. Echocardiogram demonstrates preserved LV systolic function without regional wall motion abnormality. Recommend continue IV anticoagulation with heparin. Titrate metoprolol to 25 mg 3 times daily. Continue telemetry monitoring. Supplement electrolytes as indicated. Silvestre Hyman DO, [facility] I spent a total of 40 minutes on the date of service in preparation, delivery, and documentation of the care provided to this patient, excluding any time spent in the performance of separately billed services. History of Present Illness Reason for Consultation: Rapid A-fib Requesting Physician: Sari hospitalist Attending Physician: Alistair Palomino MD History of Present Illness HPI: Patient is a 85 year old female with PMHx significant for HTN, HLD, COPD, GERD and remote history of angioneurotic edema (allergies to ASA and NSAIDS) that presented to the ER with acute respiratory distress. Patient has been seen for approx 1.5 weeks with URI symptoms, low grade fevers and a cough. She reports that her symptoms had become significantly worse over the past 3 days. Her PCP prescribed her both an antibiotic and prednisone 2 days ago, but patient did not take them. She endorses poor appetite and poor PO intake with ongoing nausea and diarrhea. Review of systems limited as patient is having a significant coughing fit. She is awake, alert and oriented and verbalizes understanding to discussion. Endorses her chest hurts from coughing. She is getting nebulizer treatments and is able to leave the department for CT chest and venous duplex due to elevated DDS. Patient has tested positive for influenza A, Chest xray shows patchy bilateral opacities suggestive of possible pneumonia EKG on admission shows atrial fibrillation with RVR --Received IV lopressor in the ER D-dimer 2110 Urine Positive--culture pending Elevated Lactate and Procalcitonin--blood cultures pending Troponin 59.4/37.5/33.9 Review of telemetry shows A-fib rates 110-120bpm Allergies Allergy/AdvReac Type Severity Reaction Status Date / Time aspirin Allergy Severe ANGIOEDEMA Verified 10/13/25 23:48 NSAIDS (Non-Steroidal Allergy Severe ANGIOEDEMA Verified 10/13/25 23:48 Anti-Inflamma clotrimazole Allergy Intermediate Itching Verified 10/13/25 23:48 erythromycin base Allergy Intermediate Hives Verified 10/13/25 23:48 Home Medications Medication Instructions Recorded Confirmed Type albuterol sulfate 90 mcg/actuation 2 puff inhalation QID PRN 10/13/25 10/13/25 History aerosol inhaler Shortness Of Breath Or Wheezing amlodipine 10 mg tablet 10 mg PO HS 10/13/25 10/13/25 History amoxicillin 875 mg-potassium 1 tab PO BID 10/13/25 10/13/25 History clavulanate 125 mg tablet atorvastatin 10 mg tablet 10 mg PO 3XWK 10/13/25 10/13/25 History budesonide 160 mcg-glycopyr 9 2 inh inhalation BID 10/13/25 10/13/25 History mcg-formot 4.8 mcg/actuation HFA inhaler (Breztri Aerosphere) clotrimazole-betamethasone 1 1 applic topical BID 10/13/25 10/13/25 History %-0.05 % topical cream conjugated estrogens 0.625 mg/gram 1,000 mg vaginal HS 10/13/25 10/13/25 History vaginal cream (Premarin) montelukast 10 mg tablet 10 mg PO HS 10/13/25 10/13/25 History nebivolol 5 mg tablet 5 mg PO QAM 10/13/25 10/13/25 History omeprazole 20 mg capsule,delayed 20 mg PO DAILYBB 10/13/25 10/13/25 History release prednisone 20 mg tablet 20 mg PO DIRECTED 10/13/25 10/13/25 History Patient History Social History Smoking Status: Former smoker Smoking End Date: 30 years ago; Hx Alcohol Use: No Hx Substance Use: No Preferred Language: Chinese Communication Ability: Effective Senior Capital Markets Specialist Required: No Beliefs That Will Affect Care: None Current Living Situation: Alone Current Living Situation Comment: lives at home alone Other Information That Helps Us Care for You: No Feels Safe at Home: Yes Safety Concerns: Feels Safe At This Time Assistive Devices: None Review of Systems Review of Systems: All systems reviewed & are unremarkable except as noted in HPI & below limited verbal discussion due to excessive coughing Physical Exam Constitutional: well developed, well nourished and + ill appearing; no acute distress Neck: normal visual inspection and trachea midline Respiratory: + cough and + tachypneic; no respiratory distress Auscultation: + rhonchi and + wheezes exp wheezes and rhonchi throughout Cardiovascular: Rate/Rhythm: + tachycardic and + irregularly irregular Heart Sounds: normal S1 and normal S2 Vessels: dorsalis pedis pulses present; no JVD Extremities: no edema Skin: no rashes, warm and dry Psychiatric: Orientation: alert and oriented x 3 Results & Data Vital Signs (Past 12 Hours) Vital Signs Temp Pulse Pulse Resp BP BP Pulse Ox 10/14/25 08:09 86 24 93 10/14/25 07:57 108 H 10/14/25 07:12 36.4 C L 119 H 23 125/74 93 10/14/25 06:33 103 H 10/14/25 06:05 125 H 130/73 10/14/25 05:56 126 H 130/73 10/14/25 05:13 110 H 20 94 10/14/25 04:26 119 H 101/61 10/14/25 04:22 102/61 10/14/25 03:59 136 H 129/81 10/14/25 03:53 36.5 C 136 H 19 129/81 95 10/14/25 03:00 10/14/25 02:50 124 H 10/14/25 02:30 36.4 C L 116 H 20 115/45 L 93 10/14/25 01:30 114 H 28 H 126/90 93 10/14/25 01:30 10/14/25 00:22 124 H 24 128/97 94 10/14/25 00:00 106 H 10/14/25 00:00 106 H 26 H 138/101 H 93 10/13/25 23:48 136 H 134/107 H 10/13/25 23:31 131 H 22 122/74 90 10/13/25 22:48 10/13/25 22:48 10/13/25 22:48 86 L 10/13/25 22:46 146 H 10/13/25 22:43 36.4 C L 155 H 38 H 110/70 74 L Pulse Ox O2 Del Method O2 Del Method O2 Flow Rate O2 Flow Rate 10/14/25 08:09 Nasal Cannula 3 10/14/25 07:57 10/14/25 07:12 Nasal Cannula 3 10/14/25 06:33 10/14/25 06:05 10/14/25 05:56 10/14/25 05:13 Nasal Cannula 3 10/14/25 04:26 10/14/25 04:22 10/14/25 03:59 10/14/25 03:53 Nasal Cannula 4 10/14/25 03:00 Nasal Cannula 4 10/14/25 02:50 10/14/25 02:30 Nasal Cannula 4 10/14/25 01:30 Nasal Cannula 4 10/14/25 01:30 93 Nasal Cannula 4 10/14/25 00:22 Nasal Cannula 4 10/14/25 00:00 10/14/25 00:00 Nasal Cannula 4 10/13/25 23:48 10/13/25 23:31 Nasal Cannula 4 10/13/25 22:48 Nasal Cannula 10/13/25 22:48 Nasal Cannula 10/13/25 22:48 Room Air, Nasal Cannula 0 10/13/25 22:46 10/13/25 22:43 Room Air Laboratory Results Cardiac Enzymes 10/13/25 10/14/25 10/14/25 Range/Units 22:56 01:19 05:35 AST 59 H (13-39) U/L Troponin I High Sens 59.4 H* 37.5 H D 33.9 H (0-14) pg/ml Coagulation 10/13/25 Range/Units 22:56 PT 11.4 (9.0-12.0) Seconds APTT 24 (21-31) Seconds CBC 10/13/25 10/14/25 Range/Units 22:56 05:35 WBC 12.15 H 10.38 (4.8-10.8) K/ul RBC 4.66 3.53 L (4.20-5.40) M/uL Hgb 13.6 10.4 L D (12.0-16.0) g/dL Hct 40.1 30.4 L (37.0-47.0) % Plt Count 432 H 345 (130-400) K/uL Neut # (Auto) 9.13 H (1.40-6.50) K/uL Lymph # (Auto) 0.83 L (1.20-3.40) K/uL Villalba # (Auto) 0.16 (0.11-0.59) K/uL Eos # (Auto) 0.00 (0.00-0.50) K/uL Baso # (Auto) 0.02 (0.00-0.20) K/uL Comprehensive Metabolic Panel 10/13/25 10/14/25 Range/Units 22:56 05:35 Sodium 133 L 132 L (136-145) mmol/L Potassium 3.0 L 3.9 D (3.5-5.1) mmol/L Chloride 94 L 101 (98-107) mmol/L Carbon Dioxide 20 L 19 L (21-32) mmol/L BUN 53 H 46 H (6-23) mg/dl Creatinine 1.26 H 0.90 D (0.6-1.2) mg/dl Glucose 147 H 178 H (70-99(Fasting)) mg/dl Calcium 9.4 7.8 L (8.6-10.3) mg/dl Direct Bilirubin 0.3 H (0-0.2) mg/dl AST 59 H (13-39) U/L ALT 26 (7-52) U/L Alkaline Phosphatase 124 H (34-104) U/L Total Protein 8.3 (6.0-8.3) gm/dl Albumin 3.8 (3.4-5.0) gm/dl Intake and Output 10/13/25 10/14/25 10/14/25 22:59 06:59 14:59 Intake Total 0 / 2488.333 2488.333 / 2488.333 221.85 / 221.85 Output Total 150 / 150 Balance 0 / 2338.333 2338.333 / 2338.333 221.85 / 221.85 Intake: IV 2488.333 / 2488.333 221.85 / 221.85 Azithromycin 500 mg In 255 ml @ 255 / 255 127.5 mls/hr IV NOW ONE Rx#: [id number] Calcium Gluconate 1,000 mg In 120 / 120 60 ml @ 240 mls/hr IV Q15M [facility] Rx#:[id number] Heparin 93693 Unit/500 ml D5w 101.85 / 101.85 25,000 units In 500 ml @ 1,050 UNITS/HR 21 mls/hr IV .[id number] [facility] Rx#:[id number] Potassium Chloride / Wtr 10 meq 183.333 / 183.333 In 100 ml @ 100 mls/hr IV Q1H [facility] Rx#:[id number] Sodium Chloride 0.9% 1,000 ml @ 2000 / 2000 999 mls/hr IV .[id number] [facility] Rx#: [id number] cefTRIAXone SODIUM 2,000 mg In 50 / 50 50 ml @ 100 mls/hr IV NOW [facility] Rx#:[id number] Oral 0 / 0 Output: Urine Amount (Catheter) 150 / 150 Gaspar/Indwelling 150 / 150 Other: Weight 68.2 kg 67.358 kg Weight Measurement Method Built in [facility] Care Time/CCT Total # of Minutes Spent Total Time Spent with Patient: Total time spent is greater than 50% in coordination of care (as documented) at patient's floor/unit and/or counseling patient: Coding Level of Care Code 32053 IN/OBS CONSULT LVL 5,80M Diagnoses Acute respiratory distress R06.03 Multifocal pneumonia J18.8 Influenza A J10.1 Elevated d-dimer R79.89 Atrial fibrillation with RVR I48.91 Time Spent (min) 50
[2025-10-14 08:59] LABS: ANTI-Xa, UFH(UnfractionatedHep 0.44 IU/ml (0.3-0.7)
--- NOTE | 2025-10-14 09:40 | Hospitalist Progress Note ---
Date of Service October 14, 2025 Assessment & Plan (1) Acute respiratory distress: Plan: 85-year-old female with past medical history significant for hypertension, COPD, hyperlipidemia, GERD, history of angioneurotic edema, who lives at home alone was brought in because of acute respite distress. She has been sick x 1 week with known sick contacts of daughter and granddaughter. +low grade fevers, cough, nausea, diarrhea and progressively worse SOB. In the ER patient was having rapid A-fib. Per the EMS oxygen saturation was found to be 70% and was placed on nonrebreather and transferred to ER. #Acute respiratory distress #Bilateral pneumonia #Influenza A positive Continue empiric IV rocephin and azithromycin Day#1 Will also give Tamiflu Droplet precautions Given elevated D dimer in ED a CTA chest is pending and b/l venous duplex Will Monitor the response #COPD exacerbation 2/2 above continue nebs levalbuterol, budesonide and formoterol IV Solu-Medrol 40 mg tid for now - will taper down as able Pt takes Breztri at home #New onset afib #Elevated troponin likely 2/2 above illness Continue with oral metoprolol and IV heparin suspect elevated troponin 2/2 demand, pt w/o cp, no st or t wave changes Will follow serial enzymes and echo will replace K and mag to keep > 4 and 2 respectively #Lactic acidosis likely 2/2 to hypoxia, resolved s/p fluids #Metabolic acidosis 2/2 to lactic acid and diarrhea monitor bmp #Acute UTI On Rocephin Will follow cultures #Diarrhea likely 2/2 viral illness Will follow stool studies #JANIA Present with creatinine 1.2 Baseline creatinine 0.9 in 2023 Avoid nephrotoxic agents resolved with IVF administration #Hypokalemia Will replace #Anemia hgb 10.4, likely dilutional will obtain anemia panel in a.m. #Hypocalcemia mag 1.8, will obtain vit D and parathyroid hormal in am. received IV calcium gluconate #Hypertension On Nebivolol and amlodipine Will monitor #GERD Omeprazole #Hyperlipidemia On statin #DVT prophylaxis IV heparin #: Saldaña cath in place - remove as soon as able, possibly 10/15 #Disposition Telemetry Full code Pt was seen in collaboration with Dr. Palomino, please see addendum This note dose not reflect a billable service at pt was admitted after 00:00 on 10/14/25. Admission and Anticipated Discharge Date Admission Date: October 14, 2025 Subjective Pt was seen and examined in room 242-2. F/U Acute resp failure, afib 2/2 influenza. She feels she isn't improving as quickly as she would like. She continues to c/o SOB. Denies f/c/s, chest pain, n/v. She reports sick contacts with family members (daughter and granddaughter). She reports diarrhea yesterday. Follows Dr. Forte Denies prior hx of CAD, T2DM. Review of Systems Review of Systems: All systems reviewed & are unremarkable except as noted in HPI & below Physical Exam Physical Exam: Gen: WD/WN, F, appears acutely ill, NAD, A&O x3 HEENT: Normocephalic, atraumatic, conjunctivae moist, sclerae anicteric, mucous membranes moist. Lung: decreased BS throughout with exp wheezing Heart: Regular rate, irregular rhythm, no murmurs, rubs, or gallops Abdomen: Soft, NT, ND +BS x 4 Extremities: No edema Skin: Warm, no rash, negative turgor. : +saldaña cath in place with yellow urine Results & Data Results & Data Vital Signs (Past 12 Hours) Vital Signs Temp Pulse Pulse Resp BP BP Pulse Ox 10/14/25 08:09 86 24 93 10/14/25 07:57 108 H 10/14/25 07:12 36.4 C L 119 H 23 125/74 93 10/14/25 06:33 103 H 10/14/25 06:05 125 H 130/73 10/14/25 05:56 126 H 130/73 10/14/25 05:13 110 H 20 94 10/14/25 04:26 119 H 101/61 10/14/25 04:22 102/61 10/14/25 03:59 136 H 129/81 10/14/25 03:53 36.5 C 136 H 19 129/81 95 10/14/25 03:00 10/14/25 02:50 124 H 10/14/25 02:30 36.4 C L 116 H 20 115/45 L 93 10/14/25 01:30 114 H 28 H 126/90 93 10/14/25 01:30 10/14/25 00:22 124 H 24 128/97 94 10/14/25 00:00 106 H 10/14/25 00:00 106 H 26 H 138/101 H 93 10/13/25 23:48 136 H 134/107 H 10/13/25 23:31 131 H 22 122/74 90 10/13/25 22:48 10/13/25 22:48 10/13/25 22:48 86 L 10/13/25 22:46 146 H 10/13/25 22:43 36.4 C L 155 H 38 H 110/70 74 L Pulse Ox O2 Del Method O2 Del Method O2 Flow Rate O2 Flow Rate 10/14/25 08:09 Nasal Cannula 3 10/14/25 07:57 10/14/25 07:12 Nasal Cannula 3 10/14/25 06:33 10/14/25 06:05 10/14/25 05:56 10/14/25 05:13 Nasal Cannula 3 10/14/25 04:26 10/14/25 04:22 10/14/25 03:59 10/14/25 03:53 Nasal Cannula 4 10/14/25 03:00 Nasal Cannula 4 10/14/25 02:50 10/14/25 02:30 Nasal Cannula 4 10/14/25 01:30 Nasal Cannula 4 10/14/25 01:30 93 Nasal Cannula 4 10/14/25 00:22 Nasal Cannula 4 10/14/25 00:00 10/14/25 00:00 Nasal Cannula 4 10/13/25 23:48 10/13/25 23:31 Nasal Cannula 4 10/13/25 22:48 Nasal Cannula 10/13/25 22:48 Nasal Cannula 10/13/25 22:48 Room Air, Nasal Cannula 0 10/13/25 22:46 10/13/25 22:43 Room Air Laboratory Results I have independently reviewed and interpreted patient's admitting labs including CBC, CMP, PTT, PT/INR, mag and troponin. Medications Administered Current Inpatient Medications Acetaminophen (Acetaminophen 325 Mg Tab) 650 mg PO Q4H PRN PRN Reason: Pain or Fever Stop: 11/13/25 00:52 Albuterol (Albuterol Hfa 8 Gm Inhaler) 2 puffs INH QID PRN PRN Reason: Shortness Of Breath Or Wheezing Stop: 11/13/25 00:52 Amlodipine Besylate (Amlodipine Besylate 5 Mg Tab) 10 mg PO HS [facility] Stop: 11/13/25 20:59 Atorvastatin Calcium (Atorvastatin 10 Mg Tab) 10 mg PO MoWeFr@2100 [facility] Stop: 11/14/25 20:59 Betamethasone/Clotrimazole (Clotrimazole/Betamethasone Cr 15 Gm Tube) 1 appln EXT BID [facility] Stop: 11/13/25 08:59 Budesonide (Budesonide 0.5 Mg/2 Ml Vial (Pulmicort)) 0.5 mg NEB BIDR [facility] Stop: 11/13/25 06:59 Last Admin: 10/14/25 08:07 Dose: 0.5 mg Fluticasone Furoate (Fluticasone Furoate 200mcg 14 Puffs/Inhaler) 1 puffs INH QAM [facility] Stop: 11/13/25 08:59 Last Admin: 10/14/25 08:21 Dose: 1 puffs Formoterol Fumarate (Formoterol 20 Mcg/2 Ml Vial) 20 mcg NEB BIDR [facility] Stop: 11/13/25 06:59 Last Admin: 10/14/25 08:07 Dose: 20 mcg Sodium Chloride (Nss) 1,000 mls @ 100 mls/hr IV .Q10H [facility] Stop: 10/14/25 20:52 Last Admin: 10/14/25 02:14 Dose: 100 mls/hr Ceftriaxone Sodium (Rocephin) 2,000 mg in 50 mls @ 100 mls/hr IV Q24H [facility] Stop: 10/19/25 21:59 Azithromycin (Zithromax) 500 mg in 255 mls @ 127.5 mls/hr IV Q24H [facility] Stop: 10/19/25 20:59 Heparin Sodium/Dextrose (Heparin 29903 Unit/500 Ml D5w) 25,000 units in 500 mls @ 21 mls/hr IV .[id number] [facility]; Protocol Stop: 11/13/25 01:59 Last Titration: 10/14/25 07:06 Dose: 1,050 units/hr, 21 mls/hr Methylprednisolone 40 mg/ (Syringe) 0.64 mls @ 1.5 mls/min IV TID [facility] Stop: 11/13/25 08:59 Last Admin: 10/14/25 08:22 Dose: 1.5 mls/min Levalbuterol HCl (Levalbuterol 1.25 Mg/3 Ml Neb) 1.25 mg NEB QIDR [facility] Stop: 11/13/25 06:59 Last Admin: 10/14/25 05:13 Dose: 1.25 mg Levalbuterol HCl (Levalbuterol 1.25 Mg/3 Ml Neb) 1.25 mg NEB Q4H PRN PRN Reason: Shortness Of Breath Or Wheezing Stop: 11/13/25 00:52 Metoprolol Tartrate (Metoprolol Tartrate 25 Mg Tab) 25 mg PO Q12 [facility] Stop: 11/13/25 08:59 Last Admin: 10/14/25 08:22 Dose: 25 mg Metoprolol Tartrate (Metoprolol Tartrate 1 Mg/Ml Vial) 5 mg IV Q6H PRN PRN Reason: Tachycardia Stop: 11/13/25 00:52 Last Admin: 10/14/25 03:59 Dose: 5 mg Montelukast Sodium (Montelukast Sodium 10 Mg Tablet) 10 mg PO HS [facility] Stop: 11/13/25 20:59 Nitroglycerin (Nitroglycerin Sl 0.4 Mg/Tab Tab) 0.4 mg SL Q5M PRN PRN Reason: Chest Pain Stop: 11/13/25 00:52 Oseltamivir Phosphate (Oseltamivir Phosphate 30 Mg Cap) 30 mg PO BID [facility] Stop: 10/19/25 20:59 Pantoprazole Sodium (Pantoprazole 40 Mg Tab) 40 mg PO DAILYBB [facility] Stop: 11/13/25 06:29 Last Admin: 10/14/25 06:05 Dose: 40 mg Polyethylene Glycol (Polyethylene (Miralax) 17 Gm Pack) 17 gm PO DAILY PRN PRN Reason: Constipation Stop: 11/13/25 00:52 Umeclidinium/Vilanterol (Umeclidinium/Vilanterol 62.5/25mcg 7 Puffs/Inhaler) 1 puffs INH DAILY [facility] Stop: 11/13/25 08:59 Last Admin: 10/14/25 08:20 Dose: 1 puffs
--- NOTE | 2025-10-14 09:43 | Ultrasound Report ---
BILATERAL LOWER EXTREMITY VENOUS DOPPLER HISTORY: Screening for DVT. elevated d dimer. dvt? COMPARISON STUDY: None. FINDINGS: Subcutaneous edema is noted. There is normal compressibility, flow, and augmentation within the bilateral lower extremity deep venous systems. IMPRESSION: No DVT within the right or left lower extremity. ACT 112: Negative or not required by law. Electronically signed by: Terell Sparrow M.D. 10/14/2025 9:42 AM
[2025-10-14] MEDS: OPTIRAY 320 125ml IV ONE (09:46)
[2025-10-14] MEDS: MAGNESIUM SULFATE / D5W 1 GM/100 ML BAG IV ONE (09:52)
[2025-10-14] MEDS: POTASSIUM CHLORIDE CRTAB 20 MEQ TABCR PO STA (09:52)
--- NOTE | 2025-10-14 10:26 | CT Scan Report ---
CT angio chest PE protocol CT DOSE: 329.72 mGy.cm HISTORY: 85 years-old Female with PE. Acute shortness of breath TECHNIQUE: Multiple CTA images of the chest were obtained after the intravenous administration of 67 ml Optiray. Coronal and sagittal MIPS were obtained from the axial data set and were submitted for r eview. All measurements were obtained according to NASCET criteria. A dose lowering technique was ut ilized adhering to the principles of ALARA. COMPARISON: Chest radiograph 10/13/2025 FINDINGS: CTA: Mild cardiomegaly with mild to moderate coronary artery calcifications. No pericardial effusion. Athe rosclerosis of the aorta without aneurysm or dissection. No pulmonary emboli are identified. CT CHEST: Unremarkable thyroid. Mildly enlarged mediastinal and hilar lymph nodes, several which are partially calcified suggestive of prior granulomatous disease. Trace pleural effusions. No pneumothorax. Intral obular septal thickening. Bronchial wall thickening with areas of mild mucous plugging. Patchy nodula r consolidative and groundglass opacities are noted within the multilobar and multi segmental distrib ution No acute upper abdominal abnormality. Soft tissues are within normal limits. There is no acute fractu re. Degenerative changes of the spine. IMPRESSION: 1. No pulmonary emboli identified. 2. Multifocal nodular consolidative and groundglass opacities are suggestive of multifocal pneumonia. Follow-up chest CT after treatment course recommended in order to document complete resolution. 3. Probable mild interstitial pulmonary edema with trace pleural effusions. ACT 112: Negative or not required by law. The above report was generated using voice recognition software. It may contain grammatical, syntax o r spelling errors. Electronically signed by: Terell Sparrow M.D. 10/14/2025 10:24 AM
[2025-10-14] MEDS: CLOTRIMAZOLE/BETAMETHASONE CR 15 GM TUBE EXT SCH (10:33)
--- NOTE | 2025-10-14 14:06 | XCELERA ---
[id number]\[id number].pdf
[2025-10-14] MEDS: AZITHROMYCIN 500 MG/255 ML BAG IV SCH (20:33)
[2025-10-14] MEDS: OSELTAMIVIR PHOSPHATE 30 MG CAP PO SCH (20:46)
[2025-10-14] MEDS: MONTELUKAST SODIUM 10 MG TABLET PO SCH (20:46)
[2025-10-14] MEDS: cefTRIAXone SODIUM 2,000 MG/50 ML BAG IV SCH (22:56)
--- NOTE | 2025-10-15 01:37 | Electrocardiogram Report ---
Test Reason : Blood Pressure : */* mmHG Vent. Rate : 143 BPM Atrial Rate : * BPM P-R Int : * ms QRS Dur : 72 ms QT Int : 284 ms P-R-T Axes : * 80 268 degrees QTcB Int : 438 ms Atrial fibrillation with rapid ventricular response with premature ventricular or aberrantly conducte d complexes Abnormal ECG No previous ECGs available Confirmed by Cheyanne Owens (Brandan) on 10/15/2025 1:36:54 AM Referred By: REFERRED SELF Confirmed By: Cheyanne Owens
[2025-10-15 06:26] LABS: Hematocrit (blood only) 25.6 % (37.0-47.0); Hemoglobin 9.0 g/dL (12.0-16.0); Mean Corpuscular Hemoglobin 29.8 pg (25.0-34.0); Mean Corpuscular Volume 84.8 fL (80.0-100.0); Platelet Count 334 K/uL (130-400); RDW Standard Deviation 44.4 fL (36.4-46.3); Red Blood Count 3.02 M/uL (4.20-5.40); White Blood Count 11.67 K/ul (4.8-10.8)
[2025-10-15 06:51] LABS: Alanine Aminotransferase 25.0 U/L (7-52); Albumin Globulin Ratio 1.0 (0.9-2); Albumin Level 3.1 gm/dl (3.4-5.0); Alkaline Phosphatase 84.0 U/L (34-104); Anion Gap 10.0 (3-11); Bilirubin,Total 0.3 mg/dl (0.2-1.0); Blood Urea Nitrogen 39.0 mg/dl (6-23); Calcium 8.3 mg/dl (8.6-10.3); Carbon Dioxide 20.0 mmol/L (21-32); Chloride 103.0 mmol/L (98-107); Creatinine Clr Calc Pharmacy 39.7 ml/min; Globulin 3.1 gm/dl (2.5-4.0); Glucose 178.0 mg/dl (70-99(Fasting)); Iron 32.0 mcg/dl (35-150); Magnesium 2.2 mg/dl (1.7-2.4); Potassium 3.6 mmol/L (3.5-5.1); Sodium 133.0 mmol/L (136-145); Total Iron Binding Cap Calc 256.0 mcg/dl (250-450); Total Protein 6.2 gm/dl (6.0-8.3); Transferrin 183.0 mg/dl (200-360); Transferrin (FE) Percent Satur 13.0 % (15-50)
[2025-10-15 07:09] LABS: Folate (Folic Acid),Ser orPlas 6.50 ng/ml (>5.38)
[2025-10-15 07:10] LABS: Vitamin B12 > 1500 pg/ml (180-914)
[2025-10-15 07:27] LABS: Immature Granulocytes # (auto) 1.09 K/uL (0.01-0.20); Immature Granulocytes % (auto) 9.3 %; Ovalocytes 1+; Polychromasia 1+
[2025-10-15 07:47] LABS: ANTI-Xa, UFH(UnfractionatedHep 0.82 IU/ml (0.3-0.7)
[2025-10-15 07:57] LABS: Hemoglobin A1C 6.5 % (4.5-5.6)
--- NOTE | 2025-10-15 10:23 | Cardiology Progress Note ---
Date of Service October 15, 2025 Assessment & Plan (1) Acute respiratory distress: (2) Multifocal pneumonia: (3) Influenza A: (4) Elevated d-dimer: (5) Atrial fibrillation with RVR: Plan Assessment: 85 year old female 1. Acute Respiratory distress 2. Multifocal pneumonia 3. Influenza A 4. New onset AF, RVR * Rocephin and azithromycin, Tamiflu, methylprenisolone * Heparin infusion for stroke prophylaxis. If Eliquis determined to be affordable will transition to Eliquis 5 mg two times per day * Increase metoprolol tartrate to 25 mg by mouth QID. Samir Barrett DO Admission and Anticipated Discharge Date Admission Date: October 14, 2025 Subjective Patient seen in cardiology follow up. Denies subjective palpitations. Still has a cough. Telemetry reveals atrial fibrillation with rate ranging from 100-114 bpm. Review of Systems Review of Systems: All systems reviewed & are unremarkable except as noted in HPI & below Physical Exam Constitutional: well developed, well nourished and + ill appearing; no acute distress Neck: normal visual inspection and trachea midline Respiratory: + cough and + tachypneic; no respiratory distress Auscultation: + rhonchi and + wheezes Cardiovascular: Rate/Rhythm: + tachycardic and + irregularly irregular Heart Sounds: normal S1 and normal S2 Vessels: dorsalis pedis pulses present; no JVD Extremities: no edema Skin: no rashes, warm and dry Psychiatric: Orientation: alert and oriented x 3 Results & Data Vital Signs (Past 12 Hours) Vital Signs Temp Pulse Resp BP Pulse Ox O2 Del Method O2 Flow Rate 10/15/25 08:21 36.5 C 135 H 20 123/73 96 Nasal Cannula 2 10/15/25 07:28 102 H 20 96 Nasal Cannula 2 10/15/25 02:34 36.8 C 99 H 20 125/83 93 Nasal Cannula 2 10/14/25 22:39 36.3 C L 95 H 18 130/66 99 Nasal Cannula 3 Laboratory Results Cardiac Enzymes 10/14/25 10/14/25 10/15/25 Range/Units 10:42 16:57 06:04 AST 44 H (13-39) U/L Troponin I High Sens 34.1 H 29.0 H (0-14) pg/ml CBC 10/15/25 Range/Units 06:04 WBC 11.67 H (4.8-10.8) K/ul RBC 3.02 L (4.20-5.40) M/uL Hgb 9.0 L (12.0-16.0) g/dL Hct 25.6 L (37.0-47.0) % Plt Count 334 (130-400) K/uL Neut # (Auto) 8.87 H (1.40-6.50) K/uL Lymph # (Auto) 1.20 (1.20-3.40) K/uL Divide # (Auto) 0.48 (0.11-0.59) K/uL Eos # (Auto) 0.00 (0.00-0.50) K/uL Baso # (Auto) 0.03 (0.00-0.20) K/uL Comprehensive Metabolic Panel 10/15/25 Range/Units 06:04 Sodium 133 L (136-145) mmol/L Potassium 3.6 (3.5-5.1) mmol/L Chloride 103 (98-107) mmol/L Carbon Dioxide 20 L (21-32) mmol/L BUN 39 H (6-23) mg/dl Creatinine 0.96 (0.6-1.2) mg/dl Glucose 178 H (70-99(Fasting)) mg/dl Calcium 8.3 L (8.6-10.3) mg/dl AST 44 H (13-39) U/L ALT 25 (7-52) U/L Alkaline Phosphatase 84 (34-104) U/L Total Protein 6.2 D (6.0-8.3) gm/dl Albumin 3.1 L (3.4-5.0) gm/dl Intake and Output 10/14/25 10/15/25 10/15/25 22:59 06:59 14:59 Intake Total 1704.55 / 3658.767 190.7 / 3658.767 147.35 / 147.35 Output Total 150 / 700 300 / 700 Balance 1554.55 / 2958.767 -109.3 / 2958.767 147.35 / 147.35 Intake: IV 1504.55 / 2978.767 190.7 / 2978.767 147.35 / 147.35 Azithromycin 500 mg In 255 ml @ 255 / 255 127.5 mls/hr IV Q24H [facility] Rx#: [id number] Heparin 15781 Unit/500 ml D5w 249.55 / 492.10 140.7 / 492.10 147.35 / 147.35 25,000 units In 500 ml @ 1,050 UNITS/HR 21 mls/hr IV .[id number] [facility] Rx#:[id number] Sodium Chloride 0.9% 1,000 ml @ 1000 / 1961.667 100 mls/hr IV .Q10H [facility] Rx#: [id number] SODIUM 2,000 mg In 50 / 50 50 ml @ 100 mls/hr IV Q24H [facility] Rx#:[id number] Oral 200 / 680 Output: Urine Amount (Catheter) 150 / 700 300 / 700 Gaspar/Indwelling 150 / 700 300 / 700 Other: Other Intake Source Sips Weight 69.1 kg Weight Measurement Method Built in [facility] Diagnostic Findings Repeat EKG today interpreted independently: A at 110 bpm, no ST , T wave changes to suggest ischemia Echocardiogram 10/14/25: LVEF 65-70% Mild AV sclerosis without stenosis Trace TR PASP 48 mm Hg Trivial loculated anterior and apical pericardial effusion, no tamponade PG Care Time/CCT Total # of Minutes Spent Total Time Spent with Patient: Total time spent is greater than 50% in coordination of care (as documented) at patient's floor/unit and/or counseling patient: Coding Level of Care Code 05086 SUB INP/OBS CARE 3/50MIN Diagnoses Acute respiratory distress R06.03 Multifocal pneumonia J18.8 Influenza A J10.1 Elevated d-dimer R79.89 Atrial fibrillation with RVR I48.91
--- NOTE | 2025-10-15 10:42 | Hospitalist Progress Note ---
Date of Service October 15, 2025 Assessment & Plan (1) Acute respiratory distress: Plan: 85-year-old female with past medical history significant for hypertension, COPD, hyperlipidemia, GERD, history of angioneurotic edema, who lives at home alone was brought in because of acute respite distress. She has been sick x 1 week with known sick contacts of daughter and granddaughter. +low grade fevers, cough, nausea, diarrhea and progressively worse SOB. In the ER patient was having rapid A-fib. Per the EMS oxygen saturation was found to be 70% and was placed on nonrebreather and transferred to ER. #Acute respiratory distress #Bilateral pneumonia #Influenza A positive #Sepsis POA due to influenza A, bilateral pneumonia Continue empiric IV rocephin and azithromycin Day#2 Continue tamiflu CTA chest: No PE, + Multifocal PNA Venous duplex negative for DVT Droplet precautions will discontinue IV solumedrol and transition to oral prednisone 40mg daily ~12:00 nursing report pt feeling more SOB, BP 118/70, SPO2 94% on 2L HR 133 -pt with positive fluid balance, persisting atrial fib in setting of resp illness, admitting chest CT with mild congestion, will give 40mg IV lasix x 1 now -obtain BNP, vbg and reassess #COPD exacerbation 2/2 above continue nebs levalbuterol, budesonide and formoterol IV Solu-Medrol 40 mg tid --> transition to oral prednisone Pt takes Breztri at home #New onset afib #Elevated troponin likely 2/2 above illness Cardiology up titrating metoprolol, IV Heparin will transition to eliquis as pharmacy copay is $0.00, 1st dose @ 21:00 on 10/15 suspect elevated troponin 2/2 demand, pt w/o cp, no st or t wave changes Echo: LVEF 65 to 70%, mild aortic valve sclerosis, trace tricuspid regurg, elevated pulmonary pressure 48 mmHg, trivial loculated anterior and apical pericardial effusion will replace K and mag to keep > 4 and 2 respectively #Lactic acidosis likely 2/2 to hypoxia, resolved s/p fluids #Metabolic acidosis 2/2 to lactic acid and diarrhea monitor bmp #Acute UTI - ruled out UA with no growth, will remain on IV rocephin for PNA #Diarrhea likely 2/2 viral illness resolved #JANIA Present with creatinine 1.2 Baseline creatinine 0.9 in 2023 Avoid nephrotoxic agents resolved #Hypokalemia k 3.6 today, will replace with a goal of K > 4 #Anemia hgb 10.4 --> 9.0, possibly dilutional iron studies negative for iron deficiency, folate and b12 adequate no apparent blood loss, monitor CBC closely, FOBT ordered. If worsening will need to consider GI #Hypocalcemia Vit D and mag adequate received IV calcium, PTH unremarkable #Hypertension On Nebivolol and amlodipine Will monitor #T2DM a1c 6.5, no prior dx will need to discuss diet/lifestyle measures prior to discharge #GERD Omeprazole #Hyperlipidemia On statin #DVT prophylaxis IV heparin - will transition to eliquis as copay is $0 #: Saldaña cath in place - remove as soon as able, possibly 10/15 #Disposition Telemetry Full code Pt was seen in collaboration with Dr. Palomino, please see addendum I spent a total of 55 minutes coordinating, documenting and providing care for this patient excluding time spent in the performance of separately billed services or time spent by another provider/QHP. Admission and Anticipated Discharge Date Admission Date: October 14, 2025 Supervising Physician Co-Signing Physician Notes Patient seen and examined independently. She reported slightly increased shortness of breath today. On physical examinations, she has bilateral wheeze along with crackles at bases. Repeat chest x-ray was ordered; mild venous congestion present with persistent multifocal pneumonia. VBG is reassuring Ipratropium nebs are added IV Lasix 40 mg once I have reviewed the advanced practitioner's documentation, and I agree with, and take responsibility for the plan of care I spent a total of 30 minutes coordinating, documenting, and providing care for this patient excluding time spent in the performance of separately billed services. All of the aforementioned completed while collaborating with the assigned advanced practitioner for a full treatment plan Subjective Pt was seen and examined in room 242-2. F/U Acute resp failure, afib 2/2 influenza. She feels some improvement. She continues to have SOB and cough. Denies f/c/s, chest pain, palpitations, n/v/d, abd pain. She denies bleeding or dark tarry stools. Review of Systems Review of Systems: All systems reviewed & are unremarkable except as noted in HPI & below Physical Exam Physical Exam: Gen: WD/WN, F, appears acutely ill but improving, NAD, A&O x3 HEENT: Normocephalic, atraumatic, conjunctivae moist, sclerae anicteric, mucous membranes moist. Lung: diffuse expiratory wheezing throughout Heart: IRR/IRR, no murmurs, rubs, or gallops Abdomen: Soft, NT, ND +BS x 4 Extremities: No edema Skin: Warm, no rash, negative turgor. : +saldaña cath in place with yellow urine Results & Data Results & Data Vital Signs (Past 12 Hours) Vital Signs Temp Pulse Resp BP Pulse Ox O2 Del Method O2 Flow Rate 10/15/25 10:36 111 H 18 95 Nasal Cannula 2 10/15/25 08:21 36.5 C 135 H 20 123/73 96 Nasal Cannula 2 10/15/25 07:28 102 H 20 96 Nasal Cannula 2 10/15/25 02:34 36.8 C 99 H 20 125/83 93 Nasal Cannula 2 10/14/25 22:39 36.3 C L 95 H 18 130/66 99 Nasal Cannula 3 Laboratory Results I have independently reviewed and interpreted patient's admitting labs including CBC, CMP, mag, anemia panel, vit D, pTH Short CBC 10/15/25 Range/Units 06:04 WBC 11.67 H (4.8-10.8) K/ul Hgb 9.0 L (12.0-16.0) g/dL Hct 25.6 L (37.0-47.0) % Plt Count 334 (130-400) K/uL BMP 10/15/25 06:04 Sodium 133 L Potassium 3.6 Chloride 103 Carbon Dioxide 20 L BUN 39 H Creatinine 0.96 Glucose 178 H Calcium 8.3 L Liver Function 10/15/25 Range/Units 06:04 Total Bilirubin 0.3 (0.2-1.0) mg/dl AST 44 H (13-39) U/L ALT 25 (7-52) U/L Alkaline Phosphatase 84 (34-104) U/L Albumin 3.1 L (3.4-5.0) gm/dl Medications Administered Current Inpatient Medications Acetaminophen (Acetaminophen 325 Mg Tab) 650 mg PO Q4H PRN PRN Reason: Pain or Fever Stop: 11/13/25 00:52 Albuterol (Albuterol Hfa 8 Gm Inhaler) 2 puffs INH QID PRN PRN Reason: Shortness Of Breath Or Wheezing Stop: 11/13/25 00:52 Amlodipine Besylate (Amlodipine Besylate 5 Mg Tab) 10 mg PO HS [facility] Stop: 11/13/25 20:59 Atorvastatin Calcium (Atorvastatin 10 Mg Tab) 10 mg PO [id number] [facility] Stop: 11/14/25 20:59 Betamethasone/Clotrimazole (Clotrimazole/Betamethasone Cr 15 Gm Tube) 1 appln EXT BID [facility] Stop: 11/13/25 08:59 Last Admin: 10/15/25 08:30 Dose: 1 appln Budesonide (Budesonide 0.5 Mg/2 Ml Vial (Pulmicort)) 0.5 mg NEB BIDR [facility] Stop: 11/13/25 06:59 Last Admin: 10/15/25 07:23 Dose: 0.5 mg Fluticasone Furoate (Fluticasone Furoate 200mcg 14 Puffs/Inhaler) 1 puffs INH QAM [facility] Stop: 11/13/25 08:59 Last Admin: 10/14/25 08:21 Dose: 1 puffs Formoterol Fumarate (Formoterol 20 Mcg/2 Ml Vial) 20 mcg NEB BIDR [facility] Stop: 11/13/25 06:59 Last Admin: 10/15/25 07:23 Dose: 20 mcg Guaifenesin/Dextromethorphan (Guaifenesin/Dextrom Syrup 200mg/20mg 10ml Udc) 10 ml PO Q6H PRN PRN Reason: Cough Stop: 11/13/25 15:23 Last Admin: 10/14/25 22:58 Dose: 10 ml Ceftriaxone Sodium (Rocephin) 2,000 mg in 50 mls @ 100 mls/hr IV Q24H [facility] Stop: 10/19/25 21:59 Last Infusion: 10/14/25 23:40 Dose: Infused Azithromycin (Zithromax) 500 mg in 255 mls @ 127.5 mls/hr IV Q24H [facility] Stop: 10/19/25 20:59 Last Infusion: 10/14/25 22:56 Dose: Infused Heparin Sodium/Dextrose (Heparin 87669 Unit/500 Ml D5w) 25,000 units in 500 mls @ 19 mls/hr IV .Q24H [facility]; Protocol Stop: 11/13/25 01:59 Last Titration: 10/15/25 10:19 Dose: 950 units/hr, 19 mls/hr Methylprednisolone 40 mg/ (Syringe) 0.64 mls @ 1.5 mls/min IV TID [facility] Stop: 11/13/25 08:59 Last Admin: 10/15/25 08:32 Dose: 1.5 mls/min Levalbuterol HCl (Levalbuterol 1.25 Mg/3 Ml Neb) 1.25 mg NEB QIDR [facility] Stop: 11/13/25 06:59 Last Admin: 10/15/25 10:35 Dose: 1.25 mg Levalbuterol HCl (Levalbuterol 1.25 Mg/3 Ml Neb) 1.25 mg NEB Q4H PRN PRN Reason: Shortness Of Breath Or Wheezing Stop: 11/13/25 00:52 Metoprolol Tartrate (Metoprolol Tartrate 1 Mg/Ml Vial) 5 mg IV Q6H PRN PRN Reason: Tachycardia Stop: 11/13/25 00:52 Last Admin: 10/14/25 03:59 Dose: 5 mg Metoprolol Tartrate (Metoprolol Tartrate 25 Mg Tab) 25 mg PO QID [facility] Stop: 11/14/25 12:59 Montelukast Sodium (Montelukast Sodium 10 Mg Tablet) 10 mg PO HS [facility] Stop: 11/13/25 20:59 Last Admin: 10/14/25 20:46 Dose: 10 mg Nitroglycerin (Nitroglycerin Sl 0.4 Mg/Tab Tab) 0.4 mg SL Q5M PRN PRN Reason: Chest Pain Stop: 11/13/25 00:52 Oseltamivir Phosphate (Oseltamivir Phosphate 30 Mg Cap) 30 mg PO BID [facility] Stop: 10/19/25 20:59 Last Admin: 10/15/25 08:29 Dose: 30 mg Pantoprazole Sodium (Pantoprazole 40 Mg Tab) 40 mg PO DAILYBB [facility] Stop: 11/13/25 06:29 Last Admin: 10/15/25 05:36 Dose: 40 mg Polyethylene Glycol (Polyethylene (Miralax) 17 Gm Pack) 17 gm PO DAILY PRN PRN Reason: Constipation Stop: 11/13/25 00:52 Umeclidinium/Vilanterol (Umeclidinium/Vilanterol 62.5/25mcg 7 Puffs/Inhaler) 1 puffs INH DAILY [facility] Stop: 11/13/25 08:59 Last Admin: 10/15/25 08:29 Dose: 1 puffs
[2025-10-15] MEDS: POTASSIUM CHLORIDE CRTAB 20 MEQ TABCR PO STA (11:14)
[2025-10-15 12:01] LABS: Ferritin 314.3 ng/ml (8-388)
--- NOTE | 2025-10-15 12:44 | XRay Report ---
XR chest 1V portable HISTORY: 85 years-old Female sob acute shortness of breath COMPARISON: CTA chest 10/14/2025 TECHNIQUE: AP view the chest FINDINGS: Cardiomediastinal and hilar silhouettes within normal limits. Patchy bilateral nodular airspace opaci ties with areas of interstitial coarsening, unchanged from prior. No pneumothorax or overt pulmonary edema. Trace pleural effusions. Bones appear grossly intact. IMPRESSION: Persistent multifocal pneumonia with trace pleural effusions. ACT 112: Negative or not required by law. The above report was generated using voice recognition software. It may contain grammatical, syntax o r spelling errors. Electronically signed by: Terell Sparrow M.D. 10/15/2025 12:43 PM
[2025-10-15 12:50] LABS: Base Excess VBG -6.1 mEq/L; HCO3 VBG 19 mmol/L; Oxygen Saturation VBG 81.4 %; PCO2 VBG 34 mmHg (38-50); PO2 VBG 47 mmHg; pH VBG 7.35 (7.36-7.41)
[2025-10-15] MEDS ORDERED: IPRATROPIUM BROMIDE NEB SOLN 0.02% 0.5MG/2.5ML VIAL NEB SCH (13:00)
[2025-10-15] MEDS: FUROSEMIDE 40 MG/4 ML VIAL IV ONE (13:52)
[2025-10-15] MEDS: METOPROLOL TARTRATE 25 MG TAB PO SCH (13:53)
[2025-10-15] MEDS: IPRATROPIUM BROMIDE NEB SOLN 0.02% 0.5MG/2.5ML VIAL NEB SCH (14:59)
[2025-10-15 19:16] LABS: ANTI-Xa, UFH(UnfractionatedHep 0.46 IU/ml (0.3-0.7)
[2025-10-15] MEDS: ATORVASTATIN 10 MG TAB PO SCH (20:43)
[2025-10-15] MEDS: APIXABAN 5 MG TABLET PO SCH (20:44)
[2025-10-15] MEDS: ACETAMINOPHEN 325 MG TAB PO PRN (20:44)
[2025-10-16 06:11] LABS: Hematocrit (blood only) 26.1 % (37.0-47.0); Hemoglobin 9.1 g/dL (12.0-16.0); Mean Corpuscular Hemoglobin 30.0 pg (25.0-34.0); Mean Corpuscular Volume 86.1 fL (80.0-100.0); Platelet Count 358 K/uL (130-400); RDW Standard Deviation 46.5 fL (36.4-46.3); Red Blood Count 3.03 M/uL (4.20-5.40); White Blood Count 12.78 K/ul (4.8-10.8)
[2025-10-16 06:28] LABS: Alanine Aminotransferase 33.0 U/L (7-52); Albumin Globulin Ratio 1.0 (0.9-2); Albumin Level 3.1 gm/dl (3.4-5.0); Alkaline Phosphatase 75.0 U/L (34-104); Anion Gap 11.0 (3-11); Bilirubin,Total 0.3 mg/dl (0.2-1.0); Blood Urea Nitrogen 37.0 mg/dl (6-23); Calcium 8.5 mg/dl (8.6-10.3); Carbon Dioxide 21.0 mmol/L (21-32); Chloride 103.0 mmol/L (98-107); Creatinine Clr Calc Pharmacy 34.1 ml/min; Globulin 3.1 gm/dl (2.5-4.0); Glucose 154.0 mg/dl (70-99(Fasting)); Magnesium 2.0 mg/dl (1.7-2.4); Potassium 3.9 mmol/L (3.5-5.1); Sodium 135.0 mmol/L (136-145); Total Protein 6.2 gm/dl (6.0-8.3)
[2025-10-16 06:50] LABS: Immature Granulocytes # (auto) 0.96 K/uL (0.01-0.20); Immature Granulocytes % (auto) 7.5 %; Ovalocytes 1+
[2025-10-16] MEDS: predniSONE 20 MG TAB PO SCH (08:42)
--- NOTE | 2025-10-16 12:36 | Hospitalist Progress Note ---
Date of Service October 16, 2025 Assessment & Plan (1) Acute respiratory distress: Plan: 85-year-old female with past medical history significant for hypertension, COPD, hyperlipidemia, GERD, history of angioneurotic edema, who lives at home alone was brought in because of acute respite distress. She has been sick x 1 week with known sick contacts of daughter and granddaughter. +low grade fevers, cough, nausea, diarrhea and progressively worse SOB. In the ER patient was having rapid A-fib. Per the EMS oxygen saturation was found to be 70% and was placed on nonrebreather and transferred to ER. #Acute respiratory distress #Bilateral pneumonia #Influenza A positive #Sepsis POA due to influenza A, bilateral pneumonia Continue empiric IV rocephin and azithromycin Day#3 Continue tamiflu CTA chest: No PE, + Multifocal PNA Venous duplex negative for DVT Droplet precautions will discontinue IV solumedrol and transition to oral prednisone 40mg daily VBG ok from 10/16, on RA, improved today. No edema. #COPD exacerbation 2/2 above continue nebs levalbuterol, budesonide and formoterol IV Solu-Medrol 40 mg tid transitioned to oral prednisone on 10/16 Pt takes Breztri at home #New onset afib #Elevated troponin likely 2/2 above illness Cardiology up titrating metoprolol- on tartrate 25 mg QID currently. Will discuss with cardiology. Tele reviewed overnight and is consistently in the low 100s, occasionally up to 120s. Initially on IV Heparin --- transitioned to eliquis as pharmacy copay is $0.00, 1st dose @ 21:00 on 10/15 suspect elevated troponin 2/2 demand, pt w/o cp, no st or t wave changes Echo: LVEF 65 to 70%, mild aortic valve sclerosis, trace tricuspid regurg, elevated pulmonary pressure 48 mmHg, trivial loculated anterior and apical pericardial effusion will replace K and mag to keep > 4 and 2 respectively #Lactic acidosis likely 2/2 to hypoxia, resolved s/p fluids #Metabolic acidosis 2/2 to lactic acid and diarrhea monitor bmp #Acute UTI - ruled out UA with no growth, will remain on IV rocephin for PNA #Diarrhea likely 2/2 viral illness resolved #JANIA Present with creatinine 1.2 Baseline creatinine 0.9 in 2023 Avoid nephrotoxic agents resolved Gaspar catheter removed on 10/15 #Hypokalemia k 3.6 today, will replace with a goal of K > 4 #Anemia hgb 10.4 --> 9.0, possibly dilutional iron studies negative for iron deficiency, folate and b12 adequate no apparent blood loss, monitor CBC closely, FOBT ordered. If worsening will need to consider GI #Hypocalcemia Vit D and mag adequate received IV calcium, PTH unremarkable #Hypertension On Nebivolol and amlodipine Will monitor #T2DM a1c 6.5, no prior dx will need to discuss diet/lifestyle measures prior to discharge #GERD Omeprazole #Hyperlipidemia On statin DVT ppx: eliquis Full code Pt was seen in collaboration with Dr. Palomino, please see addendum I spent a total of 51 minutes coordinating, documenting and providing care for this patient excluding time spent in the performance of separately billed services or time spent by another provider/QHP. Admission and Anticipated Discharge Date Admission Date: October 14, 2025 Supervising Physician Co-Signing Physician Notes Patient seen and examined independently. Discussed with above provider. Patient is more comfortable today. However respiratory status seems to have improved. She is weaned down to room air. Her ventricular rate still continues to be high; cardiology on boardincreasing metoprolol dosing. Continue to monitor on telemetry. Continue breathing treatments I have reviewed the advanced practitioner's documentation, and I agree with, and take responsibility for the plan of care I spent a total of 30 minutes coordinating, documenting, and providing care for this patient excluding time spent in the performance of separately billed services. All of the aforementioned completed while collaborating with the assigned advanced practitioner for a full treatment plan Subjective Pt was seen and examined , reports feeling better today compared to yesterday but she did not sleep well, seen sleeping around 11am today. continues to have SOB and cough. Encouraged to ambulate about the hallway with anticipation of dc soon. Review of Systems Review of Systems: 10 point ROS reviewed and otherwise negative. Physical Exam Physical Exam: General: awake, alert, no apparent distress, Elderly white female Head: Normocephalic, atraumatic ENT: PERRL, EOMI, no pharyngeal exudate, mucous membranes moist Chest: + coarse rhonchorus breath sounds, dry cough, faint expiratory wheeze, on room air Cardiac: Sinus tachycardia, HR in 110-120s, + faint murmur, no JVD, normal peripheral pulses, good capillary refill Abdominal: NABS x 4 quadrants, soft, nondistended, nontender to palpation, no rebound or guarding Extremities: Normal inspection, no peripheral edema or erythema, calfs nontender to palpation Psych: Normal mood and affect Neuro: AAO x 3, strength intact bilaterally and rated 5/5, no motor deficits, speech is clear, no peripheral sensory deficits Results & Data Results & Data Vital Signs (Past 12 Hours) Vital Signs Temp Pulse Pulse Resp BP Pulse Ox O2 Del Method 10/16/25 11:13 90 16 92 Room Air 10/16/25 08:53 Room Air 10/16/25 08:00 36.6 C 122 H 19 126/68 94 Room Air 10/16/25 07:11 111 H 18 96 Nasal Cannula 10/16/25 05:38 104 H 10/16/25 03:07 36.5 C 99 H 19 153/74 H 94 Nasal Cannula O2 Flow Rate 10/16/25 11:13 10/16/25 08:53 10/16/25 08:00 10/16/25 07:11 2 10/16/25 05:38 10/16/25 03:07 2
--- NOTE | 2025-10-16 16:49 | Cardiology Progress Note ---
Date of Service October 16, 2025 Assessment & Plan (1) Acute respiratory distress: (2) Multifocal pneumonia: (3) Influenza A: (4) Elevated d-dimer: (5) Atrial fibrillation with RVR: Plan Assessment: 85 year old female 1. Acute Respiratory distress 2. Multifocal pneumonia 3. Influenza A 4. New onset AF, RVR * Rocephin and azithromycin, Tamiflu, methylprednisolone * Tolerating Eliquis well. * change beta kylah to metoprolol succinate 75 mg two times per day Samir Barrett DO Admission and Anticipated Discharge Date Admission Date: October 14, 2025 Subjective Patient seen in follow up. Respiratory status / cough improving. AF RVR in the 120s noted on telemetry. Physical Exam Constitutional: well developed, well nourished and + ill appearing; no acute distress Neck: normal visual inspection and trachea midline Respiratory: + cough and + tachypneic; no respiratory distress Auscultation: + rhonchi and + wheezes Cardiovascular: Rate/Rhythm: + tachycardic and + irregularly irregular Heart Sounds: normal S1 and normal S2 Vessels: dorsalis pedis pulses present; no JVD Extremities: no edema Skin: no rashes, warm and dry Psychiatric: Orientation: alert and oriented x 3 Results & Data Vital Signs (Past 12 Hours) Vital Signs Temp Pulse Pulse Resp BP BP Pulse Ox 10/16/25 16:39 36.7 C 121 H 18 120/69 94 10/16/25 15:07 10/16/25 15:01 100 H 16 95 10/16/25 12:33 36.7 C 118 H 20 129/69 95 10/16/25 11:13 90 16 92 10/16/25 08:53 10/16/25 08:00 36.6 C 122 H 19 126/68 94 10/16/25 07:11 111 H 18 96 10/16/25 05:38 104 H Pulse Ox Pulse Ox O2 Del Method O2 Flow Rate O2 Flow Rate O2 Flow Rate 10/16/25 16:39 Room Air 10/16/25 15:07 95 87 L 0 0 10/16/25 15:01 Room Air 10/16/25 12:33 Room Air 10/16/25 11:13 Room Air 10/16/25 08:53 Room Air 10/16/25 08:00 Room Air 10/16/25 07:11 Nasal Cannula 2 10/16/25 05:38 PG Care Time/CCT Total # of Minutes Spent Total Time Spent with Patient: Total time spent is greater than 50% in coordination of care (as documented) at patient's floor/unit and/or counseling patient: Coding Level of Care Code 23872 SUB INP/OBS CARE 3/50MIN Diagnoses Acute respiratory distress R06.03 Multifocal pneumonia J18.8 Influenza A J10.1 Elevated d-dimer R79.89 Atrial fibrillation with RVR I48.91
[2025-10-16] MEDS: AZITHROMYCIN 250 MG TAB PO SCH (17:18)
[2025-10-16] MEDS: METOPROLOL SUCC 25MG EXT REL TAB PO SCH (20:30)
[2025-10-17 06:26] LABS: Hematocrit (blood only) 25.9 % (37.0-47.0); Hemoglobin 9.2 g/dL (12.0-16.0); Mean Corpuscular Hemoglobin 29.9 pg (25.0-34.0); Mean Corpuscular Volume 84.1 fL (80.0-100.0); Platelet Count 371 K/uL (130-400); RDW Standard Deviation 45.7 fL (36.4-46.3); Red Blood Count 3.08 M/uL (4.20-5.40); White Blood Count 13.70 K/ul (4.8-10.8)
--- NOTE | 2025-10-17 09:47 | Hospitalist Progress Note ---
Date of Service October 17, 2025 Assessment & Plan (1) Acute respiratory distress: Plan: 85-year-old female with past medical history significant for hypertension, COPD, hyperlipidemia, GERD, history of angioneurotic edema, who lives at home alone was brought in because of acute respite distress. She has been sick x 1 week with known sick contacts of daughter and granddaughter. +low grade fevers, cough, nausea, diarrhea and progressively worse SOB. In the ER patient was having rapid A-fib. Per the EMS oxygen saturation was found to be 70% and was placed on nonrebreather and transferred to ER. #Acute respiratory distress #Bilateral pneumonia # Influenza A positive #Sepsis POA due to influenza A, bilateral pneumonia Continue empiric IV rocephin and azithromycin Day#4 Continue tamiflu (finish 10/18) CTA chest: No PE, + Multifocal PNA Venous duplex negative for DVT Droplet precautions off IV solumedrol and transition to oral prednisone 40mg daily (10/16) #COPD exacerbation 2/2 above continue nebs levalbuterol, budesonide and formoterol IV Solu-Medrol 40 mg tid transitioned to oral prednisone on 10/16 Pt takes Breztri at home #New onset afib #Elevated troponin likely 2/2 above illness Cardiology up titrating metoprolol- increased to metoprolol succinate 75 mg BID - discussed with Dr. Barrett, cardiology. Had one dose last evening. Tele reviewed overnight and is consistently in the low 100s, 110 at highest. Does go up to 130s with ambulation. Initially on IV Heparin --- transitioned to eliquis as pharmacy copay is $0.00, 1st dose @ 21:00 on 10/15 suspect elevated troponin 2/2 demand, pt w/o cp, no st or t wave changes Echo: LVEF 65 to 70%, mild aortic valve sclerosis, trace tricuspid regurg, elevated pulmonary pressure 48 mmHg, trivial loculated anterior and apical pericardial effusion will replace K and mag to keep > 4 and 2 respectively #Lactic acidosis likely 2/2 to hypoxia, resolved s/p fluids #Metabolic acidosis 2/2 to lactic acid and diarrhea monitor bmp #Acute UTI - ruled out UA with no growth, will remain on IV rocephin for PNA-Complete treatment with a 5-day course on 10/18 #Diarrhea likely 2/2 viral illness resolved #JANIA Present with creatinine 1.2 Baseline creatinine 0.9 in 2023 Avoid nephrotoxic agents resolved Gaspar catheter removed on 10/15 #Hypokalemia k 3.6 today, will replace with a goal of K > 4 #Anemia hgb 10.4 --> 9.0, likely dilutional as has been stable and 9.2 on 10/17 iron studies negative for iron deficiency, folate and b12 adequate no apparent blood loss, monitor CBC closely If worsening will need to consider GI #Hypocalcemia Vit D and mag adequate received IV calcium, PTH unremarkable #Hypertension On Nebivolol and amlodipine Will monitor #T2DM a1c 6.5, no prior dx will need to discuss diet/lifestyle measures prior to discharge #GERD Omeprazole #Hyperlipidemia On statin DVT ppx: eliquis Full code Diet: HH Dispo: will complete antibiotic course on 10/18, likely discharge home with HH service tomorrow. CM assisting with arranging for the patient. I spent a total of 51 minutes coordinating, documenting and providing care for this patient excluding time spent in the performance of separately billed services or time spent by another provider/QHP. Admission and Anticipated Discharge Date Admission Date: October 14, 2025 Supervising Physician Co-Signing Physician Notes Patient seen and examined independently. Discussed with above provider. Patient is more comfortable today. Respiratory status remains improved. She is weaned down to room air. Her ventricular rate still continues to be higher; cardiology on boardon metoprolol 75 mg bid and eliquis. Continue to monitor on telemetry. Continue breathing treatments. s/p azithro course, plan for 7 d total rocephin f/b cefdinir on dc. c/w tamiflu. I have reviewed the advanced practitioner's documentation, and I agree with, and take responsibility for the plan of care I spent a total of 30 minutes coordinating, documenting, and providing care for this patient excluding time spent in the performance of separately billed services. All of the aforementioned completed while collaborating with the assigned advanced practitioner for a full treatment plan Subjective Pt doing better this morning, denies shortness of breath at rest. Asking about PT/OT, appears she did well with rolling walker on 10/16 ambulated 150 ft, already has walker at home. Will ask CM to assist with HH set up prior to discharge. No longer on O2 at rest. Review of Systems Review of Systems: 10 point ROS reviewed and otherwise negative. Physical Exam Physical Exam: General: awake, alert, no apparent distress, Elderly white female Head: Normocephalic, atraumatic ENT: PERRL, EOMI, no pharyngeal exudate, mucous membranes moist Chest: slightly diminished breath sounds but no rales or wheeze,on room air Cardiac: Sinus tachycardia, HR in 110-120s, + faint murmur, no JVD, normal peripheral pulses, good capillary refill Abdominal: NABS x 4 quadrants, soft, nondistended, nontender to palpation, no rebound or guarding Extremities: Normal inspection, no peripheral edema or erythema, calfs nontender to palpation Psych: Normal mood and affect Neuro: AAO x 3, strength intact bilaterally and rated 5/5, no motor deficits, speech is clear, no peripheral sensory deficits Results & Data Results & Data Vital Signs (Past 12 Hours) Vital Signs Temp Pulse Pulse Resp BP BP Pulse Ox 10/17/25 09:00 10/17/25 07:20 111 H 20 94 10/17/25 07:00 36.4 C L 83 18 132/66 97 10/17/25 06:31 10/17/25 04:58 110 H 10/17/25 04:49 36.4 C L 103 H 17 152/66 H 92 10/16/25 23:24 36.6 C 88 17 146/91 H 93 10/16/25 22:03 100 H O2 Del Method O2 Flow Rate 10/17/25 09:00 Room Air 10/17/25 07:20 Nasal Cannula 2 10/17/25 07:00 Nasal Cannula 2 10/17/25 06:31 Nasal Cannula 2 10/17/25 04:58 10/17/25 04:49 Room Air 10/16/25 23:24 Room Air 10/16/25 22:03
--- NOTE | 2025-10-17 11:27 | Cardiology Progress Note ---
Date of Service October 17, 2025 Assessment & Plan (1) Acute respiratory distress: (2) Multifocal pneumonia: (3) Influenza A: (4) Atrial fibrillation with RVR: Plan Assessment: 85 year old female 1. Acute Respiratory distress 2. Multifocal pneumonia 3. Influenza A 4. New onset AF, RVR * Telemetry reveals ongoing AF, rate down 105 bpm today. * Rocephin and azithromycin, Tamiflu, prednisone * Tolerating Eliquis well. * metoprolol succinate 75 mg two times per day (replaced ASPHALT DAUBER nebivolol) * Holding ASPHALT DAUBER amlodipine Samir Barrett DO Admission and Anticipated Discharge Date Admission Date: October 14, 2025 Subjective Patient seen in follow up. Denies subjective palpitations. Physical Exam Constitutional: well developed, well nourished and + ill appearing; no acute distress Neck: normal visual inspection and trachea midline Respiratory: + cough and + tachypneic; no respiratory distress Auscultation: + rhonchi and + wheezes Cardiovascular: Rate/Rhythm: + tachycardic and + irregularly irregular Heart Sounds: normal S1 and normal S2 Vessels: dorsalis pedis pulses present; no JVD Extremities: no edema Skin: no rashes, warm and dry Psychiatric: Orientation: alert and oriented x 3 Results & Data Vital Signs (Past 12 Hours) Vital Signs Temp Pulse Pulse Resp BP Pulse Ox O2 Del Method 10/17/25 10:55 100 H 20 90 Room Air 10/17/25 09:00 Room Air 10/17/25 07:20 111 H 20 94 Nasal Cannula 10/17/25 07:00 36.4 C L 83 18 132/66 97 Nasal Cannula 10/17/25 06:31 Nasal Cannula 10/17/25 04:58 110 H 10/17/25 04:49 36.4 C L 103 H 17 152/66 H 92 Room Air O2 Flow Rate 10/17/25 10:55 10/17/25 09:00 10/17/25 07:20 2 10/17/25 07:00 2 10/17/25 06:31 2 10/17/25 04:58 10/17/25 04:49 PG Care Time/CCT Total # of Minutes Spent Total Time Spent with Patient: Total time spent is greater than 50% in coordination of care (as documented) at patient's floor/unit and/or counseling patient: Coding Level of Care Code 06327 SUB INP/OBS CARE 235MIN Diagnoses Acute respiratory distress R06.03 Multifocal pneumonia J18.8 Influenza A J10.1 Atrial fibrillation with RVR I48.91
[2025-10-18 07:05] LABS: Anion Gap 8.0 (3-11); Blood Urea Nitrogen 27.0 mg/dl (6-23); Calcium 8.4 mg/dl (8.6-10.3); Carbon Dioxide 27.0 mmol/L (21-32); Chloride 101.0 mmol/L (98-107); Creatinine Clr Calc Pharmacy 45.9 ml/min; Glucose 97.0 mg/dl (70-99(Fasting)); Potassium 3.5 mmol/L (3.5-5.1); Sodium 136.0 mmol/L (136-145)
[2025-10-18 07:43] VITALS: TEMP 97.2
[2025-10-18] MEDS: POTASSIUM CHLORIDE CRTAB 20 MEQ TABCR PO ONE (08:46)
[2025-10-18] MEDS: METOPROLOL SUCC 50MG EXT REL TAB PO SCH (09:17)
--- NOTE | 2025-10-18 10:34 | Electrocardiogram Report ---
Test Reason : Blood Pressure : */* mmHG Vent. Rate : 110 BPM Atrial Rate : * BPM P-R Int : * ms QRS Dur : 78 ms QT Int : 300 ms P-R-T Axes : * 71 40 degrees QTcB Int : 406 ms Atrial fibrillation with rapid ventricular response Abnormal ECG When compared with ECG of 13-Oct-2025 22:45, ST no longer depressed in Anterolateral leads T wave inversion no longer evident in Inferior leads HR has decreased Confirmed by Gordon Haynes ([id number]) on 10/18/2025 10:34:15 AM Referred By: REFERRED SELF Confirmed By: Gordon Haynes
--- NOTE | 2025-10-18 10:39 | Electrocardiogram Report ---
Test Reason : Blood Pressure : */* mmHG Vent. Rate : 104 BPM Atrial Rate : * BPM P-R Int : * ms QRS Dur : 80 ms QT Int : 298 ms P-R-T Axes : * 69 28 degrees QTcB Int : 391 ms Atrial fibrillation with rapid ventricular response Abnormal ECG When compared with ECG of 15-Oct-2025 05:33, (unconfirmed) No significant change was found Confirmed by Gordon Haynes ([id number]) on 10/18/2025 10:39:21 AM Referred By: REFERRED SELF Confirmed By: Gordon Haynes
[2025-10-18 11:09] VITALS: RESP 22
[2025-10-18] MEDS: cefTRIAXone SODIUM 2,000 MG/50 ML BAG IV ONE (11:16)
[2025-10-18 11:29] VITALS: O2SAT 92
--- NOTE | 2025-10-18 13:51 | Discharge Summary ---
Discharge Summary Date of Service October 18, 2025 Principal Dx & Hospital Course #1 = Principal Diagnosis (1) Acute hypoxic respiratory failure: (2) Influenza A: (3) Multifocal pneumonia: (4) Atrial fibrillation with RVR: (5) COPD exacerbation: (6) Sepsis: (7) Elevated troponin: (8) Anemia: Plan 85-year-old female with PMH significant for hypertension, COPD, hyperlipidemia, GERD, history of angioneurotic edema, who presented with low grade fevers, cough, nausea, diarrhea and progressively worse SOB and was admitted for acute hypoxic respiratory failure and A fib RVR. Acute hypoxic respiratory failure secondary to influenza A and multifocal pneumonia Patient presenting with flu-like symptoms and found to be hypoxic to 74% in ED Biofire positive influenza A Procalcitonin 1.52 Admitting CXR and chest CT revealed multifocal nodular consolidative opacities Completed 5 days of ceftriaxone and azithromycin Completed 4 days of tamiflu-> discharged with one additional day to complete course Received IV and PO steroids while inpatient-> discharged on prednisone taper for 7 days Discharged to live at [facility] with services arranged COPD exacerbation Secondary to above Treated with nebs while inpatient Resume Breztri and complete steroid taper as above Sepsis Met criteria on admission with leukocytosis, tachycardia, tachypnea, elevated lactate Lactic acidosis resolved with fluid administration Urine culture negative Blood cultures prelim NGTD after 48 hours Completed antibiotics as above Atrial fibrillation with RVR Likely triggered by above illness TTE revealed LVEF 65-70%, mild aortic valve sclerosis, trace TR, pulm HTN, trivial loculated anterior and apical pericardial effusion Eliquis started while inpatient Cardiology consulted and titrated metoprolol succinate up to 100mg bid HRs still elevated between 90-115s Cardiology cleared patient for discharge Continue Eliquis and metoprolol Follow up with Cardiology outpatient - they will be arranging this appointment Elevated troponin Secondary to above Initially 59 and downtrended appropriately Patient denied chest pain EKG without ischemic changes Hypertension Hold amlodipine until PCP follow up due to new metoprolol dosing Anemia Hgb 13.6-> stable around 9, likely dilutional Iron studies, vitamin B12, folate all WNL Patient asymptomatic Recommend repeat labs at PCP follow up appointment Possible diabetes A1C 6.5 Elevated fasting glucose but in setting of steroid use Met with breastfeeding educator inpatient Recommend outpatient labs for formal diagnosis/management GERD Continue omeprazole Hyperlipidemia Continue atorvastatin Patient seen in collaboration with Dr. Sharma. Please see addendum. Notes For Next Care Provider 85 year old female with significant PMH who was admitted at [facility] from 10/14-10/18/2025 for acute hypoxic respiratory failure secondary to influenza A and multifocal pneumonia. Completed antibiotic course for pneumonia. Discharged on remaining course of tamiflu and steroid taper. Cardiology consulted for new diagnosis of A fib RVR. Started patient on Eliquis and metoprolol and plan to see patient outpatient for follow up. Recommend holding amlodipine while on metoprolol until BP is assessed at PCP follow up. Medication Changes From Visit START eliquis 5mg by mouth twice daily START metoprolol succinate 100mg by mouth twice daily START tamiflu 30mg by mouth twice daily until last dose on 10/19 at 0900 START prednisone 40mg by mouth daily for 3 days and 20mg by mouth daily for 4 days then stop STOP nebivolol HOLD amlodipine until you follow up with your PCP Admission HPI Per Admitting Provider 85-year-old female with past medical history significant for hypertension, COPD, hyperlipidemia, GERD, history of angioneurotic edema, who lives at home alone was brought in because of acute respite distress. Daughter is in the room. Mode rodriguez states since day she has been sick. First couple of days she had low-grade fevers. Having cough. Progressively getting short of breath. Last 3 days shortness of breath got worse. Her PCP prescribed prednisone and antibiotics last Wednesday but not taken yet. Having lot of nausea. Poor appetite. With coughing she has some chest discomfort. Currently no chest pain. Has some headaches. No runny nose or sore throat. No earache. No abdominal pain. Was also having diarrhea. Micturating okay. In the ER patient was having rapid A-fib. Per the EMS oxygen saturation was found to be 70% and was placed on nonrebreather and transferred to ER. Currently is saturating okay on 4 L. Past medical history. As mentioned above. Past surgical history. Hysterectomy. Cholecystectomy. Appendectomy. Tonsillectomy. Social history. Says quit smoking about 30 years ago. Prior to that smoked 1 pack a day for 35 years. Alcohol rarely. No drug use. Family history. Sister had breast cancer. Paternal aunt had breast cancer. Mother had diabetes. Father had heart disorder. Admission Exam Per Admitting Provider General- Not in distress Head- atraumatic Eyes- PERRL. ENT- oropharynx dry Neck- supple, no JVD. Lungs- clear to auscultation mild bibasilar crackles and rhonchi Heart- irregular rhythm; tachycardia, no murmur, no gallop. Abdomen- normal bowel sounds, soft, nontender, no distension. Extremities- no pretibial edema, no erythema seen Neuro- alert, oriented PERRL, no facial palsy; no dysarthria; moves extremities Discharge Exam General/Psych: WD/WN, sitting up in bed, NAD, conversing easily Head: normocephalic, atraumatic Eyes: normal inspection, PERRL, conjunctivae pink Neck: normal visual inspection, trachea midline Respiratory: normal respiratory effort, lungs with bilateral rhonchi and expiratory wheezing, no accessory muscle use Cardiovascular: irregularly irregular, no murmur/rub/gallop Extremities: no cyanosis or clubbing, normal peripheral pulses, no BLE edema Abdomen/GI: normal bowel sounds, soft, nontender Neurologic/MSK: A+Ox3, motor strength 5/5, moves all extremities Skin: no rashes, normal color, warm and dry Updated Medication List Medication Instructions Recorded Confirmed Type albuterol sulfate 90 mcg/actuation 2 puff inhalation QID PRN 10/13/25 10/13/25 History aerosol inhaler Shortness Of Breath Or Wheezing amlodipine 10 mg tablet 10 mg PO HS 10/13/25 10/13/25 History atorvastatin 10 mg tablet 10 mg PO 3XWK 10/13/25 10/13/25 History budesonide 160 mcg-glycopyr 9 2 inh inhalation BID 10/13/25 10/13/25 History mcg-formot 4.8 mcg/actuation HFA inhaler (Breztri Aerosphere) clotrimazole-betamethasone 1 1 applic topical BID 10/13/25 10/13/25 History %-0.05 % topical cream conjugated estrogens 0.625 mg/gram 1,000 mg vaginal HS 10/13/25 10/13/25 History vaginal cream (Premarin) montelukast 10 mg tablet 10 mg PO HS 10/13/25 10/13/25 History omeprazole 20 mg capsule,delayed 20 mg PO DAILYBB 10/13/25 10/13/25 History release apixaban 5 mg tablet (Eliquis) 5 mg PO Q12H #60 tabs 10/15/25 Rx metoprolol succinate 50 mg 100 mg (2 x 50 mg) PO BID #60 tabs 10/18/25 Rx tablet,extended release 24 hr oseltamivir 30 mg capsule 30 mg PO BID #2 caps 10/18/25 Rx prednisone 20 mg tablet 20 mg PO DAILY #10 tabs 10/18/25 Rx Hospital Stay Data Consultations 10/13/25 23:41 ED Decision to Admit Stat 10/14/25 08:00 Consult Cardiology Routine Diagnostic Imagining Performed Chest X-Ray 10/13/25 22:48 Exam(s): XR CXR 1 VIEW EXAM: XR Chest, 1 View CLINICAL HISTORY: Reason for exam: Sepsis. TECHNIQUE: Frontal view of the chest. COMPARISON: No relevant prior studies available. FINDINGS: Lungs: There are bilateral patchy opacities.. Pleural space: No pleural effusion is seen. No pneumothorax. Heart: The heart is normal in size.. Mediastinum: Unremarkable. . Bones/joints: Grossly unremarkable.. IMPRESSION: Patchy bilateral opacities may represent infiltrates. Electronically signed by: Cricket Bobo MD 10/13/25 23:09 PM Chest CTA 10/14/25 06:53 CT angio chest PE protocol CT DOSE: 329.72 mGy.cm HISTORY: 85 years-old Female with PE. Acute shortness of breath TECHNIQUE: Multiple CTA images of the chest were obtained after the intravenous administration of 67 ml Optiray. Coronal and sagittal MIPS were obtained from the axial data set and were submitted for review. All measurements were obtained according to NASCET criteria. A dose lowering technique was utilized adhering to the principles of ALARA. COMPARISON: Chest radiograph 10/13/2025 FINDINGS: CTA: Mild cardiomegaly with mild to moderate coronary artery calcifications. No pericardial effusion. Atherosclerosis of the aorta without aneurysm or dissection. No pulmonary emboli are identified. CT CHEST: Unremarkable thyroid. Mildly enlarged mediastinal and hilar lymph nodes, several which are partially calcified suggestive of prior granulomatous disease. Trace pleural effusions. No pneumothorax. Intralobular septal thickening. Bronchial wall thickening with areas of mild mucous plugging. Patchy nodular consolidative and groundglass opacities are noted within the multilobar and multi segmental distribution No acute upper abdominal abnormality. Soft tissues are within normal limits. There is no acute fracture. Degenerative changes of the spine. IMPRESSION: 1. No pulmonary emboli identified. 2. Multifocal nodular consolidative and groundglass opacities are suggestive of multifocal pneumonia. Follow-up chest CT after treatment course recommended in order to document complete resolution. 3. Probable mild interstitial pulmonary edema with trace pleural effusions. ACT 112: Negative or not required by law. The above report was generated using voice recognition software. It may contain grammatical, syntax or spelling errors. Electronically signed by: Terell Sparrow M.D. 10/14/2025 10:24 AM Venous Doppler Study 10/14/25 06:53 BILATERAL LOWER EXTREMITY VENOUS DOPPLER HISTORY: Screening for DVT. elevated d dimer. dvt? COMPARISON STUDY: None. FINDINGS: Subcutaneous edema is noted. There is normal compressibility, flow, and augmentation within the bilateral lower extremity deep venous systems. IMPRESSION: No DVT within the right or left lower extremity. ACT 112: Negative or not required by law. Electronically signed by: Terell Sparrow M.D. 10/14/2025 9:42 AM Chest X-Ray 10/15/25 12:24 XR chest 1V portable HISTORY: 85 years-old Female sob acute shortness of breath COMPARISON: CTA chest 10/14/2025 TECHNIQUE: AP view the chest FINDINGS: Cardiomediastinal and hilar silhouettes within normal limits. Patchy bilateral nodular airspace opacities with areas of interstitial coarsening, unchanged from prior. No pneumothorax or overt pulmonary edema. Trace pleural effusions. Bones appear grossly intact. IMPRESSION: Persistent multifocal pneumonia with trace pleural effusions. ACT 112: Negative or not required by law. The above report was generated using voice recognition software. It may contain grammatical, syntax or spelling errors. Electronically signed by: Terell Sparrow M.D. 10/15/2025 12:43 PM Pending Results Patient Have Any Pending Studies at Discharge: No Discharge Instructions Given to Patient (Per Discharging Provider) You presented to the hospital with respiratory symptoms and were found to have the flu and pneumonia. You completed a course of antibiotics for the pneumonia. You still have one day left of Tamiflu to treat the flu. You will also need to complete a steroid taper for the next 7 days. You were newly diagnosed with atrial fibrillation with rapid heart rates. This was likely triggered by your illness. You were started on a medication to decrease your heart rate, called metoprolol, as well as a blood thinner, called Eliquis, because atrial fibrillation puts you at increased risk for blood clots that can cause a stroke. Your hemoglobin A1C and glucose levels were elevated during your stay indicating possible diabetes. You met with a breastfeeding educator who recommended lifestyle changes such as diet and exercise. We recommend you discuss this with your PCP, who will likely need to repeat labs when you are no longer on steroids. MEDICATION CHANGES: START eliquis 5mg by mouth twice daily START metoprolol succinate 100mg by mouth twice daily START tamiflu 30mg by mouth twice daily until last dose on 10/19 at 0900 START prednisone 40mg by mouth daily for 3 days and 20mg by mouth daily for 4 days then stop STOP nebivolol HOLD amlodipine until you follow up with your PCP SUMMARY OF TEST RESULTS: Chest CT revealed multifocal pneumonia Venous duplex of legs negative for blood clots Echocardiogram revealed EF 65-70%, mild aortic valve sclerosis, trace tricuspid regurgitation, pulmonary hypertension, trivial pericardial effusion PENDING TEST RESULTS: None RECOMMENDATIONS FOR FOLLOW-UP: Please follow up with your PCP as scheduled on 10/24/2025 at 3:30pm Please follow up with Cardiology for your new diagnosis of atrial fibrillation - they will contact you with an appointment date and time OTHER INSTRUCTIONS: Seek medical attention if you have: * temperature above 101 * chest pain or trouble breathing * abdominal pain, nausea, vomiting * diarrhea, dark stools or bloody stools * any unanswered questions or concerns Call 911 if symptoms are severe. It has been a pleasure taking care of you. Please take care of yourself. If you have any questions regarding your recent hospitalization please contact [facility] and request Sari Ruthy @ [phone]. Home Health Attestation I certify that this patient is under my care and that I, or a physicians transition assistant working with me, had a face to-face encounter that meets the home health [id number]-hh-rohm encounter requirements with this patient. The encounter with the patient was in whole, or in part, for the following medical condition, which is the primary reason for home health care (list medical condition): Acute hypoxic respiratory failure secondary to influenza A and multifocal pneumonia Atrial fibrillation with RVR I certify that, based on my findings, the following services are medically necessary home health services: My clinical findings support the need for the above services because: OT Assess ADL Status and Restore Function w ADLs PT Assessment for Endurance / Balance / Strength PT Eval for Safety and Mobility PT Eval for Safety, Gait Training, Assistive Devices PT Gait and Balance Training, Strengthening and Safety Skilled Nsg Assessment Further, I certify that my clinical findings support that this patient is homebound (i.e. absences from home require considerable and taxing effort and are for medical reasons or adventism services or infrequently or of short duration when for other reasons) because: Transportation Assistance/Unable to Leave Home Unassisted Certification for Home Health Services: Based on the above findings, I certify that this patient is confined to the home and needs intermittent chcf care, physical therapy and/or speech th erapy or continues to need occupational therapy. The patient is under my care, and I have initiated the establishment of the plan of care. This patient will be followed by a physician who will periodically review the plan of care. Total Time Total Time Spent Total Time Spent (In Minutes): I spent a total of 35 minutes coordinating, documenting and providing care for this patient excluding time spent in the performance of separately billed services or time spent by another provider/QHP. Supervising Physician Co-Signing Physician Notes Patient seen and examined independently. Discussed with above provider. Patient is more comfortable today. Respiratory status remains improved. She is weaned down to room air. Her ventricular rate still continues to be higher; cardiology evaledon metoprolol 100 mg bid and eliquis. Continue to monitor on telemetry. Continue breathing treatments. s/p azithro course, s/p 5 d total rocephin. c/w tamiflu to complete course. I have reviewed the advanced practitioner's documentation, and I agree with, and take responsibility for the plan of care I spent a total of 24 minutes coordinating, documenting, and providing care for this patient excluding time spent in the performance of separately billed services. All of the aforementioned completed while collaborating with the assigned advanced practitioner for a full treatment plan
[2025-10-18 14:34] VITALS: BP 144/80; PULSE 102
--- NOTE | 2025-10-18 15:37 | Cardiology Progress Note ---
Date of Service October 18, 2025 Assessment & Plan (1) Acute respiratory distress: (2) Multifocal pneumonia: (3) Influenza A: (4) Atrial fibrillation with RVR: Plan Assessment: 85 year old female 1. Acute Respiratory distress 2. Multifocal pneumonia 3. Influenza A 4. New onset AF, RVR * Telemetry reveals ongoing AF, rate down 105 bpm today. * Stable for discharge metoprolol succinate 100 mg twice daily (replaced prior to arrival treatment with Nebivolol). * Eliquis 5 mg twice daily Samir Barrett DO Admission and Anticipated Discharge Date Admission Date: October 14, 2025 Subjective Patient feeling improved. Denies palpitations. Physical Exam Constitutional: well developed, well nourished and + ill appearing; no acute distress Neck: normal visual inspection and trachea midline Respiratory: + cough and + tachypneic; no respiratory distress Auscultation: + rhonchi Cardiovascular: Rate/Rhythm: + irregularly irregular Heart Sounds: normal S1 and normal S2 Vessels: dorsalis pedis pulses present; no JVD Extremities: no edema Skin: no rashes, warm and dry Psychiatric: Orientation: alert and oriented x 3 Results & Data Vital Signs (Past 12 Hours) Vital Signs Temp Pulse Pulse Resp BP BP Pulse Ox 10/18/25 14:33 36.2 C L 102 H 115 H 22 137/62 144/80 H 92 10/18/25 11:29 36.2 C L 115 H 137/62 92 10/18/25 11:08 64 22 97 10/18/25 08:00 10/18/25 07:42 36.2 C L 102 H 159/79 H 92 10/18/25 07:15 92 H 20 90 O2 Del Method 10/18/25 14:33 10/18/25 11:29 Room Air 10/18/25 11:08 Room Air 10/18/25 08:00 Room Air 10/18/25 07:42 Room Air 10/18/25 07:15 Room Air PG Care Time/CCT Total # of Minutes Spent Total Time Spent with Patient: Total time spent is greater than 50% in coordination of care (as documented) at patient's floor/unit and/or counseling patient: Coding Level of Care Code 73735 SUB INP/OBS CARE 3/50MIN Diagnoses Acute respiratory distress R06.03 Multifocal pneumonia J18.8 Influenza A J10.1 Atrial fibrillation with RVR I48.91
== END 2025-10-18 15:06 | disposition home health service (06) | DRG 871 ==
LOC: ED 22:41 → EDINP 10-14 00:31 → SUATTDRO 10-14 00:31 → 2S 10-14 00:54